=== PATIENT | female | born 1985 | race Caucasian/White ===

== ENCOUNTER 2020-02-10 13:17 | Observation (INO) ==
[2020-02-10] MEDS ORDERED: IOPAMIDOL 100 ML BOTTLE IV ONE ×2 (13:18→21:34)
[2020-02-10] MEDS ORDERED: morphine 2 MG/ML VIAL IV ONE (13:44)
[2020-02-10] MEDS ORDERED: ONDANSETRON 4 MG/2 ML VIAL IV ONE (13:48)
[2020-02-10 14:30] LABS: Basophils # (Auto) 0.02 K/mcL (0.00-0.20); Basophils % (Auto) 0.2 % (0.0-2.0); Eosinophils # (Auto) 0.08 K/mcL (0.00-0.70); Eosinophils % (Auto) 0.9 % (0.0-7.0); Hemoglobin 10.5 g/dL (12.0-15.0); Lymphocytes % (Auto) 13.7 % (15.0-49.0); Mean Cell Volume 95.7 fL (80.0-100.0); Mean Corpuscular HGB Conc 33.9 g/dL (31.0-36.0); Mean Platelet Volume 9.3 fL (7.4-10.4); Monocytes # (Auto) 0.66 K/mcL (0.10-0.90); Monocytes % (Auto) 7.6 % (1.0-12.0); Neutrophils % (Auto) 77.6 % (38.0-78.0); Platelet Count 264 K/mcL (140-440); RBC 3.24 M/mcL (4.00-5.20); Red Cell Distribution Width 11.1 % (11.5-14.5); WBC 8.7 K/mcL (4.5-11.0)
[2020-02-10 14:45] LABS: ALT/SGPT 27 U/L (<40); AST/SGOT 20 U/L (<32); Albumin 4.3 gm/dL (3.2-5.2); Albumin/Globulin Ratio 1.3 (1.0-2.3); Alkaline Phosphatase 76 U/L (39-117); Bilirubin,Total 0.8 mg/dL (0.1-1.0); Blood Urea Nitrogen 10 mg/dL (6-20); Calcium 9.7 mg/dL (8.6-10.4); Carbon Dioxide 25 mmol/L (22-30); Chloride 97 mmol/L (96-108); Globulin 3.2 gm/dL (2.2-3.7); Glomerular Filtration Rate 83; Glucose 103 mg/dL (70-105)
[2020-02-10] MEDS ORDERED: morphine 4 MG/ML VIAL IV ONE ×2 (14:45→16:46)
[2020-02-10] MEDS ORDERED: 0.9 % SODIUM CHLORIDE 1,000 ML IV ONE ×2 (15:31→16:47)
--- NOTE | 2020-02-10 15:41 | Cat Scan Report ---
History: Hypoxia, history of pulmonary emboli, recent surgery TECHNIQUE: Following injection of intravenous nonionic contrast, pulmonary arterial phase images were acquired from the thoracic inlet through the diaphragm. Sagittal and coronal reformats were created. Radiation exposure was limited using dose reduction technology. FINDINGS: On the axial MIPS, series 603, image #60 a small meniscus sign is seen in a solitary peripheral third order branch of the right lower lobe pulmonary artery. No other intraluminal filling defects are seen within the pulmonary arteries in either lung or in the main pulmonary artery. There are multiple thick bands of discoid atelectasis in the right lower lobe resulting in mild elevation of the right diaphragm. There are several smaller bands of discoid atelectasis in the left lower lobe as well as the inferior medial aspect of the right middle lobe and lingula. No lobar consolidation is present. Central airways appear normal. A 3.5 x 5 mm subpleural granuloma is present laterally in the right lower lobe on axial image #68. A 4 x 4 mm granuloma is present laterally in the left lower lobe on image #76. The heart is normal in size and contour. The aorta is normal in caliber. There is no plaque formation. The mediastinum and harlan are normal without evidence of adenopathy. Small hiatus hernia is noted. There are two cysts inferiorly in segments five and six of the right lobe of liver. Largest is located more medially and measures 1.5 cm. Comparison with the prior chest CT done at [facility] on 01/24/14 shows the bands of atelectasis are new. The granulomata in both lower lobes are chronic. The hiatus hernia has developed since the prior exam. IMPRESSION: Very small peripheral embolus in a third order branch of the right lower lobe in a region of the discoid atelectasis Multiple bands of atelectasis with the greatest involvement in the right lower lobe causing elevation of the right diaphragm Dr. Vance was called with the results Interpreted and Authenticated by: Nicholas Cano 02/10/20
[2020-02-10] MEDS ORDERED: oxyCODONE/APAP 5/325MG TABLET PO ONE ×2 (18:13→22:26)
--- NOTE | 2020-02-10 19:41 | Emergency Department Note ---
SOB HPI General Chief Complaint: Shortness of Breath/Dyspnea Stated Complaint: Shortness of breath Time Seen by Provider: 02/10/20 13:22 Source: patient Mode of arrival: ambulatory Limitations: no limitations History of Present Illness HPI Narrative: Narrative: 34-year old patient presenting with chief complaint of dyspnea. Patient's dyspnea arose over the course of past several days. Patient with associated sym ptoms of cough, sputum, gradual progression, orthopnea, fever. Past medical history is significant for surgery on Wednesday vaginal hysterectomy with ovaries left insitu. This patient's dyspnea was exacerbated by exertion within 50-100 feet of walking or several minutes of exercise. Also was associated with a nocturnal component. Symptoms are continuous. Additional associated symptoms such as cough, sputum production, nasal congestion, chest pain, peripheral edema, joint swelling, muscle weakness were also inquired. Patient primarily with dyspnea sensation of air hunger/sensation of suffocation. She also states that at home her saturations drop on walking around the house into the mid to upper 80s. Related Data Home Medications Medication Instructions Recorded Confirmed aripiprazole 10 mg PO DAILY 07/23/19 01/28/20 citalopram 20 mg PO DAILY 07/23/19 01/28/20 rivaroxaban 20 mg PO DAILY 07/23/19 07/23/19 metoprolol tartrate 25 mg PO DAILY 02/10/20 02/10/20 Allergies Allergy/AdvReac Type Severity Reaction Status Date / Time From ZOLOFT AdvReac Severe REALLY Uncoded 10/05/14 00:17 INCREASED ANXIETY AND CRAZY THOUGHTS Review of Systems ROS ROS Narrative: Narrative: All systems ED: reviewed and negative except as stated. [facility] Narrative Patient History Narrative: Narrative: Medical/Surgical/Family History All Active Problems (Updated 02/10/20 @ 19:56 by John Vance MD) Palpitations (Acute) Abnormal vaginal bleeding (Acute) Pulmonary embolism (Acute) Sinus tachycardia (Acute) Social History Smoking Status: Never smoker Alcohol Intake Frequency: holiday/special occasion only Substance Use: does not use Exam Narrative Narrative: Vital signs and evaluated for evidence of hypoxia or hemodynamic compromise specifically tachycardia/hypotension- General: Alert, interactive, appropriate Head: Atraumatic, normocephalic Eyes: Extraocular movements intact, sclera anicteric, no conjunctival injection Ears: Pinnae normal, no discharge Mouth: Oral mucosa moist, no acute swelling or evidence of infection Nares: No nasal discharge, patent bilaterally Neck: Trachea midline, full range of motion Chest: Symmetrical chest wall rise, breathing rapidly, labored respirations Cardiovascular: Patient with excellent perfusion to the extremities; with tachycardia Extremities: Full range of motion joints, no obvious deformities Neuro: Alert, oriented x3, cranial nerves II through XII grossly intact, patient without lateralizing findings such as weakness, or abnormal reflexes Psychiatric: Normal affect, normal mood General Limitations: no limitations Course Vital Signs Vital signs: Vital Signs Temperature 98.7 F 02/10/20 13:18 Pulse Rate 135 H 02/10/20 13:18 Respiratory Rate 30 H 02/10/20 13:18 Blood Pressure 127/82 02/10/20 13:18 Pulse Oximetry (%) 96 02/10/20 13:18 Temperature 98.7 F 02/10/20 13:18 Pulse Rate 120 H 02/10/20 19:21 Respiratory Rate 29 H 02/10/20 19:30 Blood Pressure 111/67 02/10/20 19:30 Pulse Oximetry (%) 93 02/10/20 19:[address] [facility] MDM Narrative Medical decision making narrative: Narrative: Acute dyspnea differential diagnosis considered in this case included GA, heart failure, cardiac tamponade, bronchospasm, pulmonary embolism, pneumothorax, pneumonia or infection, and upper airway obstruction. After review of chart and patient history/physical exam/labs as well as imaging the differential diagnosis addressed was acute hypoxic respiratory failure, COPD exacerbation, pneumonia, sepsis, pulmonary edema, pneumothorax, metabolic acidosis, acute respiratory distress syndrome, panic attack, airflow obstruction, restrictive lung disease, aspiration, congestive heart failure, hypercapnia, influenza, bronchitis, upper respiratory infection, pulmonary embolism, cardiac tamponade, valvular obstruction, GA/ACS, and arrhythmia in my medical opinion this patient has dyspnea that reasonably does require admission to the hospital. Pt does have small subsegmental pulmonary embolus on CT pulmonary angiogram. Despite 2 L of IV fluid and aggressive pain management patient still with discomfort as well as significant tachycardia. After 5 hours of treatment patient was road tested and noted to have her heart rate go from 120s to 140s 150s. Patient did not become hypoxic during this evaluation. I discussed the case with Dr. Omer and the consensus medical opinion secondary to the profound tachycardia and distal pulmonary embolus is to admit the patient for ongoing evaluation management in the hospital. Lab Data Result diagrams: 02/10/20 13:50 02/10/20 13:50 Labs: Lab Results 02/10/20 02/10/20 02/10/20 Range/Units 13:50 13:50 13:50 WBC 8.7 (4.5-11.0) K/mcL RBC 3.24 L (4.00-5.20) M/mcL Hgb 10.5 L (12.0-15.0) g/dL Hct 31.0 L (36.0-48.0) % MCV 95.7 (80.0-100.0) fL MCH 32.4 (26.0-34.0) pg MCHC 33.9 (31.0-36.0) g/dL RDW 11.1 L (11.5-14.5) % Plt Count 264 (140-440) K/mcL MPV 9.3 (7.4-10.4) fL Neut % (Auto) 77.6 (38.0-78.0) % Lymph % (Auto) 13.7 L (15.0-49.0) % [place] % (Auto) 7.6 (1.0-12.0) % Eos % (Auto) 0.9 (0.0-7.0) % Baso % (Auto) 0.2 (0.0-2.0) % Lymph # (Auto) 1.20 L (1.50-4.80) K/mcL [place] # (Auto) 0.66 (0.10-0.90) K/mcL Eos # (Auto) 0.08 (0.00-0.70) K/mcL Baso # (Auto) 0.02 (0.00-0.20) K/mcL Absolute Neutrophils 6.77 (1.80-8.00) K/mcL VBG Lactic Acid 0.9 (0.5-2.0) mmol/L Sodium 133 (133-145) mmol/L Potassium 3.4 (3.3-5.1) mmol/L Chloride 97 (96-108) mmol/L Carbon Dioxide 25 (22-30) mmol/L Anion Gap 11.0 (8.0-16.0) BUN 10 (6-20) mg/dL Creatinine 0.9 (0.6-1.1) mg/dL GFR Calculation 83 Glucose 103 (70-105) mg/dL Calcium 9.7 (8.6-10.4) mg/dL Total Bilirubin 0.8 (0.1-1.0) mg/dL AST 20 (<32) U/L ALT 27 (<40) U/L Alkaline Phosphatase 76 (39-117) U/L Troponin T (<0.03) ng/mL Total Protein 7.5 (5.9-8.4) gm/dL Albumin 4.3 (3.2-5.2) gm/dL Globulin 3.2 (2.2-3.7) gm/dL Albumin/Globulin Ratio 1.3 (1.0-2.3) 02/10/20 Range/Units 13:50 WBC (4.5-11.0) K/mcL RBC (4.00-5.20) M/mcL Hgb (12.0-15.0) g/dL Hct (36.0-48.0) % MCV (80.0-100.0) fL MCH (26.0-34.0) pg MCHC (31.0-36.0) g/dL RDW (11.5-14.5) % Plt Count (140-440) K/mcL MPV (7.4-10.4) fL Neut % (Auto) (38.0-78.0) % Lymph % (Auto) (15.0-49.0) % [place] % (Auto) (1.0-12.0) % Eos % (Auto) (0.0-7.0) % Baso % (Auto) (0.0-2.0) % Lymph # (Auto) (1.50-4.80) K/mcL [place] # (Auto) (0.10-0.90) K/mcL Eos # (Auto) (0.00-0.70) K/mcL Baso # (Auto) (0.00-0.20) K/mcL Absolute Neutrophils (1.80-8.00) K/mcL VBG Lactic Acid (0.5-2.0) mmol/L Sodium (133-145) mmol/L Potassium (3.3-5.1) mmol/L Chloride (96-108) mmol/L Carbon Dioxide (22-30) mmol/L Anion Gap (8.0-16.0) BUN (6-20) mg/dL Creatinine (0.6-1.1) mg/dL GFR Calculation Glucose (70-105) mg/dL Calcium (8.6-10.4) mg/dL Total Bilirubin (0.1-1.0) mg/dL AST (<32) U/L ALT (<40) U/L Alkaline Phosphatase (39-117) U/L Troponin T < 0.01 (<0.03) ng/mL Total Protein (5.9-8.4) gm/dL Albumin (3.2-5.2) gm/dL Globulin (2.2-3.7) gm/dL Albumin/Globulin Ratio (1.0-2.3) Discharge Plan Patient/Caregiver Discharge Instructions Pt seen by CIVIL ENGINEERING INTERN/PA only: No Clinical Impression: Sinus tachycardia Pulmonary embolism Qualifiers: Pulmonary embolism type: single subsegmental (without acute cor pulmonale) Qualified Code(s): I26.93 - Single subsegmental pulmonary embolism without acute cor pulmonale Patient Disposition: Xfer As Inpt ([facility]) Condition: Fair Follow up with: Iris Dawkins MD [Primary Care Provider] - Prescriptions: No Action citalopram 10 MG tablet 40 mg PO DAILY RF: 0 aripiprazole 10 MG tablet 10 mg PO DAILY RF: 0 rivaroxaban 10 MG tablet 20 mg PO DAILY RF: 0 metoprolol tartrate 25 MG tablet 25 mg PO DAILY RF: 0
[2020-02-10] MEDS ORDERED: ACETAMINOPHEN 325 MG TABLET PO PRN ×2 (20:23→21:34)
[2020-02-10] MEDS ORDERED: morphine 2 MG/ML VIAL IV PRN (20:23)
[2020-02-10] MEDS ORDERED: LEVALBUTEROL 0.63 MG/3 ML AMPUL.NEB NEB PRN ×2 (20:23→21:34)
[2020-02-10] MEDS ORDERED: ONDANSETRON 4 MG/2 ML VIAL IV PRN ×2 (20:23→21:34)
[2020-02-10] MEDS ORDERED: 0.9 % SODIUM CHLORIDE 1,000 ML IV SCH (20:30)
[2020-02-10] MEDS ORDERED: traMADol 50 MG TABLET PO PRN ×2 (20:38→21:34)
[2020-02-10] MEDS ORDERED: DOCUSATE SODIUM 100 MG CAPSULE PO SCH (21:00)
--- NOTE | 2020-02-10 21:09 | Internal Med History&Physical ---
HPI History of Present Illness Patient information: Note initiated : 02/10/20 at 8:42 pm Service Date, if different from initiated Date: [] Patient: Layla Cunha a 34 y/o F admitted on for Shortness of breath. Chief Complaint: [] History of present illness: Ms. Cunha is a 34 year old F with a past medical history of vaginal bleeding, status post hysterectomy, and history of PE x 2 who presented to the ER due to worsening shortness of breath. As per patient, she underwent hysterectomy with ovarian left in situ on February 06, 2020 for vaginal bleeding due to benign reason. On February 07, she developed fever, tachycardia, more abdominal pain, and oxygen desaturation 88%. She has been having these since the February 07. The abdominal pain is located both right and left lower quadrants, sharp in nature and 4 out of 10 in severity. She was also found to have thickened inhomogeneous endometrium, for which a biopsy was scheduled. In the ER, she was found to have oxygen desaturation. CT angios showed new PE of right lower lobe. When I saw this patient in the ER, other than the symptoms mentioned above, she also complains of lightheadedness, dizziness, and a cough with small amount of nonbloody sputum. Patient had first PE in 2011 for which she was started on Coumadin. In 2012, she developed a second PE. At that time, INR was subtherapeutic. She switched to Xarelto from Coumadin. Since that, she has been taking Xarelto until she underwent hysterectomy, for which, she stopped taking Xarelto but bridged with the Lovenox. Denies family history of thrombotic events. Denies smoking or cancer. Review of Systems All systems: reviewed and no additional remarkable complaints except as stated PFSH PFSH All Active Problems Palpitations (Acute) Abnormal vaginal bleeding (Acute) Pulmonary embolism (Acute) Sinus tachycardia (Acute) Social History smoking status: Never smoker alcohol intake frequency: holiday/special occasion only substance use type: does not use MEDS/ALLERGIES Home Medications and Allergies Home Medications Medication Instructions Recorded Confirmed Type aripiprazole 10 mg PO DAILY 07/23/19 02/10/20 History citalopram 40 mg PO DAILY 07/23/19 02/10/20 History rivaroxaban 20 mg PO DAILY 07/23/19 02/10/20 History metoprolol tartrate 25 mg PO DAILY 02/10/20 02/10/20 History Allergies Allergy/AdvReac Type Severity Reaction Status Date / Time From ZOLOFT AdvReac Severe REALLY Uncoded 10/05/14 00:17 INCREASED ANXIETY AND CRAZY THOUGHTS EXAM Constitutional Vitals: Temp Pulse Resp BP Pulse Ox 98.7 F 108 H 17 107/69 95 02/10/20 13:18 02/10/20 20:35 02/10/20 20:35 02/10/20 20:30 02/10/20 20:35 Additional findings Additional findings: General - No acute distress Eyes - PERRLA, EOM intact ENT no rhinorrhea, no noticeable or palpable swelling, no redness or rash around throat or on face Neck supple, no JVD, no thyromegaly Respiratory: Lungs -clear, no wheezing or crackles. Cardiovascular - RRR no m/r/g, GI - Normal bowel sounds, no distended, soft. Extremeties - No edema, cyanosis or clubbing Hemo/lymphatic/immune no lymphadenopathy Neurological Alert and oriented x 3, no focal neurological deficits. Psychiatry flat affect DATA Data Completed and Pending Labs: Labs from last 24 hours 02/10/20 02/10/20 02/10/20 13:50 13:50 13:50 WBC RBC Hgb Hct MCV MCH MCHC RDW Plt Count MPV Neut % (Auto) Lymph % (Auto) [place] % (Auto) Eos % (Auto) Baso % (Auto) Lymph # (Auto) [place] # (Auto) Eos # (Auto) Baso # (Auto) Absolute Neutrophils VBG Lactic Acid 0.9 Sodium 133 Potassium 3.4 Chloride 97 Carbon Dioxide 25 Anion Gap 11.0 BUN 10 Creatinine 0.9 GFR Calculation 83 Glucose 103 Calcium 9.7 Total Bilirubin 0.8 AST 20 ALT 27 Alkaline Phosphatase 76 Troponin T < 0.01 Total Protein 7.5 Albumin 4.3 Globulin 3.2 Albumin/Globulin Ratio 1.3 02/10/20 13:50 WBC 8.7 RBC 3.24 L Hgb 10.5 L Hct 31.0 L MCV 95.7 MCH 32.4 MCHC 33.9 RDW 11.1 L Plt Count 264 MPV 9.3 Neut % (Auto) 77.6 Lymph % (Auto) 13.7 L [place] % (Auto) 7.6 Eos % (Auto) 0.9 Baso % (Auto) 0.2 Lymph # (Auto) 1.20 L [place] # (Auto) 0.66 Eos # (Auto) 0.08 Baso # (Auto) 0.02 Absolute Neutrophils 6.77 VBG Lactic Acid Sodium Potassium Chloride Carbon Dioxide Anion Gap BUN Creatinine GFR Calculation Glucose Calcium Total Bilirubin AST ALT Alkaline Phosphatase Troponin T Total Protein Albumin Globulin Albumin/Globulin Ratio A/P Narrative A/P Narrative: 1. Acute hypoxic respiratory failure Pulse ox Oxygen therapy, keep oxygen saturation greater than 92% 2. Acute pulmonary embolism CT angios showed "Very small peripheral embolus in a third order branch of the right lower lobe in a region of the discoid atelectasis" Hx of PE in 2011, started coumadin Hx of PE in 2012, still on coumadin but INR was subtherapeutic. Switched to Xarelto. She stopped take Xarelto due to hysterectomy on February 05, bridging with Lovenox. Denies family history of thrombotic events Denies smoking Thickened inhomogeneous endometrium, biopsy was scheduled Ultrasound Doppler bilateral legs to rule out DVT EKG -sinus tachycardia Echocardiogram BNP Pulse ox Troponin Oxygen therapy I do not think she has failed treatment with Xarelto. The new PE could be due to discontinuity of Xarelto due to surgery. I would like to start her on Xarelto 15 mg p.o. twice daily for 21 days and then 20 mg daily. 3. Vaginal bleeding, s/p hysterectomy on 02/06/20 The [employer] physician who did the procedure was consulted in the ER -no further procedure. Pain management 4. Hx of pulmonary embolism x 2 Echocardiogram Xarelto 5. Sinus tachycaria Cardia monitor Continue metoprolol 6. Anemia of blood loss Patient denies bleeding Repeat CBC in morning 7. DVT prophylaxis: Xarelto 8. 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
[2020-02-10] MEDS: 0.9 % SODIUM CHLORIDE 1,000 ML IV SCH (21:38)
[2020-02-10] MEDS: 0.9 % SODIUM CHLORIDE 10 ML SYRINGE IV SCH (21:39)
[2020-02-10] MEDS ORDERED: 0.9 % SODIUM CHLORIDE 10 ML SYRINGE IV SCH (22:00)
[2020-02-10] MEDS: oxyCODONE/APAP 5/325MG TABLET PO PRN (22:22)
[2020-02-10] MEDS: morphine 2 MG/ML VIAL IV PRN (23:12)
[2020-02-10] MEDS ORDERED: morphine 2 MG/ML VIAL ONE (23:18)
[2020-02-11] MEDS: morphine 2 MG/ML VIAL IV PRN (04:55)
[2020-02-11] MEDS: oxyCODONE/APAP 5/325MG TABLET PO PRN (04:56)
[2020-02-11] MEDS ORDERED: oxyCODONE/APAP 5/325MG TABLET PO ONE (05:00)
[2020-02-11] MEDS ORDERED: morphine 2 MG/ML VIAL ONE (05:00)
[2020-02-11] MEDS: 0.9 % SODIUM CHLORIDE 10 ML SYRINGE IV SCH (05:21)
[2020-02-11 06:09] LABS: Basophils # (Auto) 0.03 K/mcL (0.00-0.20); Basophils % (Auto) 0.4 % (0.0-2.0); Eosinophils # (Auto) 0.17 K/mcL (0.00-0.70); Eosinophils % (Auto) 2.1 % (0.0-7.0); Hematocrit 29.1 % (36.0-48.0); Hemoglobin 9.6 g/dL (12.0-15.0); Lymphocytes # (Auto) 1.01 K/mcL (1.50-4.80); Lymphocytes % (Auto) 12.6 % (15.0-49.0); Mean Cell Volume 98.3 fL (80.0-100.0); Mean Platelet Volume 9.2 fL (7.4-10.4); Monocytes # (Auto) 0.55 K/mcL (0.10-0.90); Monocytes % (Auto) 6.9 % (1.0-12.0); Platelet Count 240 K/mcL (140-440); RBC 2.96 M/mcL (4.00-5.20); Red Cell Distribution Width 11.2 % (11.5-14.5)
[2020-02-11 06:25] LABS: INR 1.1 (0.9-1.1); Prothrombin Time 14.5 sec (11.9-14.5)
[2020-02-11] MEDS ORDERED: PANTOPRAZOLE 40 MG TABLET PO SCH ×2 (07:30)
[2020-02-11] MEDS ORDERED: RIVAROXABAN 15 MG TABLET PO SCH ×2 (08:00)
--- NOTE | 2020-02-11 08:28 | Cat Scan Report ---
History: Abdominal pain, tachycardia, status post nodule hysterectomy within the past five days TECHNIQUE: The patient was imaged without oral or intravenous contrast the diaphragm to the symphysis pubis 2.5 mm intervals. Sagittal and coronal reformats are created. The radiation exposure was limited using dose reduction technology. FINDINGS: There is excreted contrast in the renal collecting systems bilaterally from the preceding pulmonary chest CT angiogram. 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 There is no hydronephrosis and no evidence of a mass, cyst or inflammation in either kidney. Urinary bladder is decompressed and grossly normal. In segment five anterior to the right kidney. Measures 1.8 cm in greatest dimension. The liver is otherwise normal in size and homogeneous. Minor atelectasis in tiny right-sided pleural effusion are present. The spleen is normal size and homogeneous. There is a 1.4 cm accessory spleen posterior to the lower pole. Pancreas is normal size and homogeneous. The adrenals are normal. Aorta and inferior vena cava are normal. There is no plaque formation. There are two large solid, mildly heterogeneous oval-shaped masses in the pelvis. The larger is on the right side and measures 5.3 x 6.7 x 9.0 cm. The one on the left measures 4.6 x 5.4 x 6.0 cm. There is stranding and inflammation of the adjacent fat. There is also a hematoma anterior lateral to the larger right-sided nodule. The hematomas 4 x 5 mm in size. No free intraperitoneal air is present. The uterus is been removed. There appears to be a residual cervical stump. The wall of the sigmoid colon appears inflamed at the level of the adnexal masses. No diverticula are present. There is no evidence of bowel obstruction. Small intestine is normal in caliber. There is a row of surgical sutures in the cecum consistent with prior appendectomy. IMPRESSION: Bilateral adnexal masses. These are probably the ovaries. The ovarian enlargement and stranding of the adjacent fat is highly suspicious for ovarian torsion. Ovarian neoplasm would be less likely. Small hematoma in the right side of the pelvis Dr. Vance was called with the results Interpreted and Authenticated by: Nicholas Caon 02/11/20
[2020-02-11] MEDS ORDERED: DOCUSATE SODIUM 100 MG CAPSULE PO SCH (09:00)
[2020-02-11] MEDS ORDERED: ARIPIPRAZOLE 10 MG TABLET PO SCH (09:00)
[2020-02-11] MEDS ORDERED: CITALOPRAM 20 MG TABLET PO SCH (09:00)
[2020-02-11] MEDS ORDERED: CITALOPRAM 10 MG TABLET PO SCH (09:00)
[2020-02-11] MEDS ORDERED: ARIPIPRAZOLE 5 MG TABLET PO SCH (09:00)
[2020-02-11] MEDS ORDERED: METOPROLOL TARTRATE 25 MG TABLET PO SCH ×2 (09:00)
--- NOTE | 2020-02-11 09:16 | Ultrasound Report ---
History: Shortness of breath, recent pelvic surgery for hysterectomy FINDINGS: There is normal augmentation and compressibility in the deep veins and saphenous veins in both legs from the groin through the calf. Doppler shows normal waveform patterns. IMPRESSION: Normal exam, without evidence of deep venous thrombosis in either leg Interpreted and Authenticated by: Nicholas Cano 02/11/20
[2020-02-11] MEDS: 0.9 % SODIUM CHLORIDE 1,000 ML IV SCH (11:02)
[2020-02-11 11:38] LABS: proBNP 80.4 pg/mL (<125.0)
[2020-02-11 11:39] LABS: ALT/SGPT 19 U/L (<40); AST/SGOT 15 U/L (<32); Albumin 3.8 gm/dL (3.2-5.2); Albumin/Globulin Ratio 1.4 (1.0-2.3); Alkaline Phosphatase 68 U/L (39-117); Bilirubin,Total 0.5 mg/dL (0.1-1.0); Blood Urea Nitrogen 9 mg/dL (6-20); Calcium 9.1 mg/dL (8.6-10.4); Carbon Dioxide 24 mmol/L (22-30); Chloride 101 mmol/L (96-108); Globulin 2.8 gm/dL (2.2-3.7); Glomerular Filtration Rate 96; Glucose 81 mg/dL (70-105)
--- NOTE | 2020-02-11 12:18 | Discharge Summary ---
Discharge Provider Provider Patient information: Note initiated : 02/11/20 at 12:06 pm Service Date, if different from initiated Date: [] Patient: Layla Cunha 34 y/o F admitted on 02/10/20 for Shortness of breath. Chief Complaint: [] Date of admission: 02/10/20 21:24 Discharge date: 02/11/20 Primary care physician: Iris Dawkins Consults: 02/10/20 Consult to Physician [CONS] Stat Comment: Consulting Provider: Lakhwinder Omer Reason For Exam: Physician to Consult Discharge Meds Discharge Medications Home Medications aripiprazole 10 mg PO DAILY 07/23/19 [History Confirmed 02/10/20 Last Taken 02/10/20] citalopram 40 mg PO DAILY 07/23/19 [History Confirmed 02/10/20 Last Taken 02/10/20] metoprolol tartrate 25 mg PO DAILY 02/10/20 [History Confirmed 02/10/20 Last Taken 02/10/20] rivaroxaban [Xarelto] 15 mg PO BIDCC #40 tab 02/11/20 [Rx Last Taken Unknown] tramadol 50 mg PO Q6-8HP PRN #9 tab 02/11/20 [Rx Last Taken Unknown] COURSE Hospital Course Hospital course: 1. Acute hypoxic respiratory failure She is now on room air with good oxygen saturation 2. Acute pulmonary embolism CT angios showed "Very small peripheral embolus in a third order branch of the right lower lobe in a region of the discoid atelectasis" Hx of PE in 2011, started coumadin Hx of PE in 2012, still on coumadin but INR was subtherapeutic. Switched to Xarelto. She stopped take Xarelto due to hysterectomy on February 05, bridging with Lovenox. Denies family history of thrombotic events Denies smoking Pathology report from a hysterectomy pending Ultrasound Doppler bilateral legs negative for DVT EKG -sinus tachycardia Echocardiogram was performed and results are pending BNP 80 Troponin negative x2 I do not think she has failed treatment with Xarelto. The new PE could be due to discontinuity of Xarelto due to surgery. I would like to start her on Xarelto 15 mg p.o. twice daily for 21 days and then 20 mg daily. Educated patient the side effects of Xarelto. Follow with PCP and medical equipment technician 3. Vaginal bleeding, s/p hysterectomy on 02/06/20 The [facility] [employer] physician who did the procedure was consulted in the ER -no further procedure. Pain management 4. Hx of pulmonary embolism x 2 Echocardiogram Xarelto 5. Sinus tachycaria Improving Continue metoprolol 6. Anemia of blood loss Could be due to blood loss from surgery and previous bleeding Patient denies active current bleeding Repeat CBC in morning Ms. Cunha is a 34 year old F with a past medical history of vaginal bleeding, status post hysterectomy, and history of PE x 2 who presented to the ER due to worsening shortness of breath. As per patient, she underwent hysterectomy with ovarian left in situ on February 06, 2020 for vaginal bleeding due to benign reason. On February 07, she developed fever, tachycardia, more abdominal pain, and oxygen desaturation 88%. She has been having these since the February 07. The abdominal pain is located both right and left lower quadrants, sharp in nature and 4 out of 10 in severity. She was also found to have thickened inhomogeneous endometrium, for which a biopsy was scheduled. In the ER, she was found to have oxygen desaturation. CT angios showed new PE of right lower lobe. When I saw this patient in the ER, other than the symptoms mentioned above, she also complains of lightheadedness, dizziness, and a cough with small amount of nonbloody sputum. Patient had first PE in 2011 for which she was started on Coumadin. In 2012, she developed a second PE. At that time, INR was subtherapeutic. She switched to Xarelto from Coumadin. Since that, she has been taking Xarelto until she underwent hysterectomy, for which, she stopped taking Xarelto but bridged with the Lovenox. Denies family history of thromboti c events. Denies smoking or cancer. 02/10 Today patient feels much better and does not have any complaints. Vital signs are stable and acceptable. She is on room air with a good oxygen saturation. Ultrasound Doppler no DVT of both legs. Echocardiogram were not performed and report pending. BNP 80. Troponin negative x2 She is now on Xarelto. She will be discharged home to follow with PCP, SEAM STEAMER and hematology. Repeat CBC in 3 days. If you have bleeding call PCP or go to the ER immediately. Call PCP for medical issues. Discharge diagnosis: Acute pulmonary embolism Time Spent with Patient Time attestation: Total time spent providing and/or coordinating discharge services: EXAM Constitutional Vitals: Temp Pulse Resp BP Pulse Ox 98.4 F 97 H 18 100/61 98 02/11/20 09:01 02/11/20 10:05 02/11/20 09:01 02/11/20 10:01 02/11/20 04:01 Additional findings Additional findings: General - No acute distress Eyes - PERRLA, EOM intact ENT no rhinorrhea, no noticeable or palpable swelling, no redness or rash around throat or on face Neck supple, no JVD, no thyromegaly Respiratory: Lungs -clear, no wheezing or crackles. Cardiovascular - RRR no m/r/g, GI - Normal bowel sounds, no distended, soft. Extremeties - No edema, cyanosis or clubbing Hemo/lymphatic/immune no lymphadenopathy Neurological Alert and oriented x 3, no focal neurological deficits. Psychiatry flat affect Discharge Data Data Completed and Pending Labs on day of discharge: Labs from last 24 hours 02/11/20 02/11/20 02/11/20 04:12 04:12 04:12 WBC 8.0 RBC 2.96 L Hgb 9.6 L Hct 29.1 L MCV 98.3 MCH 32.4 MCHC 33.0 RDW 11.2 L Plt Count 240 MPV 9.2 Neut % (Auto) 78.0 Lymph % (Auto) 12.6 L Meriwether % (Auto) 6.9 Eos % (Auto) 2.1 Baso % (Auto) 0.4 Lymph # (Auto) 1.01 L [place] # (Auto) 0.55 Eos # (Auto) 0.17 Baso # (Auto) 0.03 Absolute Neutrophils 6.24 PT INR VBG Lactic Acid Sodium 136 Potassium 3.7 Chloride 101 Carbon Dioxide 24 Anion Gap 11.0 BUN 9 Creatinine 0.8 GFR Calculation 96 Glucose 81 Calcium 9.1 Total Bilirubin 0.5 AST 15 ALT 19 Alkaline Phosphatase 68 Troponin T < 0.01 NT-Pro-B Natriuret Pep 80.4 Total Protein 6.6 Albumin 3.8 Globulin 2.8 Albumin/Globulin Ratio 1.4 02/11/20 02/10/20 02/10/20 04:12 13:50 13:50 WBC RBC Hgb Hct MCV MCH MCHC RDW Plt Count MPV Neut % (Auto) Lymph % (Auto) Meriwether % (Auto) Eos % (Auto) Baso % (Auto) Lymph # (Auto) Mer[place]ether # (Auto) Eos # (Auto) Baso # (Auto) Absolute Neutrophils PT 14.5 INR 1.1 VBG Lactic Acid 0.9 Sodium Potassium Chloride Carbon Dioxide Anion Gap BUN Creatinine GFR Calculation Glucose Calcium Total Bilirubin AST ALT Alkaline Phosphatase Troponin T < 0.01 NT-Pro-B Natriuret Pep Total Protein Albumin Globulin Albumin/Globulin Ratio 02/10/20 02/10/20 13:50 13:50 WBC 8.7 RBC 3.24 L Hgb 10.5 L Hct 31.0 L MCV 95.7 MCH 32.4 MCHC 33.9 RDW 11.1 L Plt Count 264 MPV 9.3 Neut % (Auto) 77.6 Lymph % (Auto) 13.7 L [place] % (Auto) 7.6 Eos % (Auto) 0.9 Baso % (Auto) 0.2 Lymph # (Auto) 1.20 L Mer[place] # (Auto) 0.66 Eos # (Auto) 0.08 Baso # (Auto) 0.02 Absolute Neutrophils 6.77 PT INR VBG Lactic Acid Sodium 133 Potassium 3.4 Chloride 97 Carbon Dioxide 25 Anion Gap 11.0 BUN 10 Creatinine 0.9 GFR Calculation 83 Glucose 103 Calcium 9.7 Total Bilirubin 0.8 AST 20 ALT 27 Alkaline Phosphatase 76 Troponin T NT-Pro-B Natriuret Pep Total Protein 7.5 Albumin 4.3 Globulin 3.2 Albumin/Globulin Ratio 1.3 Discharge Plan Patient/Caregiver Discharge Instructions Activity: increase activity as tolerated Diet: Regular Diet Prescriptions: New tramadol 50 mg Tablet 50 mg PO Q6-8HP PRN (Reason: Pain) Qty: 9 RF: 0 Xarelto 15 mg Tablet 15 mg PO BIDCC Qty: 40 RF: 0 Continued citalopram 10 MG tablet 40 mg PO DAILY RF: 0 aripiprazole 10 MG tablet 10 mg PO DAILY RF: 0 metoprolol tartrate 25 MG tablet 25 mg PO DAILY RF: 0 Discontinued rivaroxaban 10 MG tablet 20 mg PO DAILY RF: 0 Other Ambulatory Orders: Complete Blood Count (Routine) Timeframe: 3 Days Facility: [facility] - Location: Laboratory Ordered By: Lakhwinder Omer Follow Up Plan Follow up with: Iris Dawkins MD [Primary Care Provider] - Unknown [Outside] (Follow with PCP in 3 days and hematology in 1 week.) Patient Disposition: Home, Self-Care Prognosis: Fair Discharge Orders: Discharge Order (Routine); Ordered 02/11/20 Ordered By: Lakhwinder Omer
== END 2020-02-11 13:50 | disposition home or self-care (01) ==
LOC: ED 13:17 → ICU 13:17
PROVIDERS: ADMIT Internal Medicine; ATTEND Internal Medicine

== ENCOUNTER 2020-09-17 08:48 | Observation (INO) ==
[2020-09-17] MEDS ORDERED: IOPAMIDOL 100 ML BOTTLE IV ONE (08:49)
[2020-09-17] MEDS ORDERED: 0.9 % SODIUM CHLORIDE 1,000 ML IV ONE (09:09)
--- NOTE | 2020-09-17 09:24 | Emergency Department Note ---
HPI General Chief complaint: Weakness Stated complaint: weakness Time Seen by Provider: 09/17/20 09:19 Source: patient Mode of arrival: ambulatory Limitations: no limitations History of Present Illness HPI Narrative: Narrative: Patient is a 35-year-old female with history of antiphospholipid antibody syndrome who is on anticoagulation. She had a recent noted right ovarian tumor and hemorrhagic cyst which was removed 4 days ago. She has since restarted her Coumadin and is currently as well on Lovenox postoperatively. She was having some recent pain which her doctor had plan to do CT scan of the abdomen and p paulo to further evaluate feeling of bloating and the ongoing pain. This morning she was getting her kids ready for school when she being came suddenly lightheaded dizzy felt like she was going to pass out and had worsening abdominal pain. Staff noted on arrival she appeared pale. Her heart rate has been fast but she has no complaint of any pleuritic chest pain. She does have increased pain with movement or tapping over the abdomen. No hematemesis no melena or hematochezia. No blood in the urine. She notes a bruise on her posterior left leg which she is suspects is from being moved over or about on the OR table. Rates her pain as moderate but at times severe with palpation of the abdomen. Again worse with movement. She has not had any fever or other ill symptoms. No feeling of shortness of breath other than as in conjunction with feeling like she was going to pass out. Related Data Home Medications Medication Instructions Recorded Confirmed aripiprazole 5 mg PO DAILY 07/23/19 09/17/20 warfarin See Rx Instructions .ROUTE .COMPLEX 09/09/20 09/17/20 Previous Rx's Medication Instructions Recorded enoxaparin [Lovenox] 90 mg SUBCUT Q12H #10 ml 09/09/20 oxycodone-acetaminophen [Percocet] 1 tab PO Q6H PRN #30 tab 09/09/20 Allergies Allergy/AdvReac Type Severity Reaction Status Date / Time sertraline AdvReac Mild Anxiety Verified 09/17/20 09:05 Review of Systems ROS ROS Narrative: Narrative: A 10 system review of systems was performed and found to be negative except as outlined above. [facility] Narrative Patient History Narrative: Narrative: Medical/Surgical/Family History All Active Problems (Updated 09/17/20 @ 12:33 by Joel Olmos MD) Ovarian cyst (Acute) Postoperative hematoma (Acute) Postoperative hematoma involving genitourinary system (Acute) Lower abdominal pain (Acute) Palpitations (Acute) Abnormal vaginal bleeding (Acute) Pulmonary embolism (Acute) Sinus tachycardia (Acute) Social History Smoking Status: Never smoker Alcohol Intake Frequency: holiday/special occasion only Substance Use: does not use Exam Narrative Narrative: Narrative: General: Alert, mildly pale appearing. Speaking full sentences without dyspnea. HEENT: NCAT, PERRL, Oral pharynx with moist mucus membranes. No pharyngeal erythema. No conjunctival pallor, no gingival pallor. Neck: Supple, No lymphadenopathy Chest: Stable symmetric chest expansion. Heart: Tachycardic with regular rhythm. Rate is approximately 105-108. No appreciable murmur. Lungs: Clear to auscultation bilaterally, no pleural rub. Abdomen: Soft, mild distention. Evidence of laparoscopic surgical sites with minimal bruising around them. There is question of minimal bloating or distention of the abdomen. She is exquisitely tender in the right lower quadrant with some rebound tenderness. There is also rebound tenderness elsewhere over the general abdomen including in the left upper abdomen with again the pain referred to the right lower quadrant. Patient is status post appendectomy. : No bladder distention Back: Nontraumatic, No CVA tenderness to palpation. Skin: No rash or lesion. 1 small ecchymosis right posterior medial left thigh without hematoma. Extremity: No cyanosis or edema, pulses 1+ radial Neurologic: Moves all extremities in appropriate coordinated fashion. General Limitations: no limitations Course Vital Signs Vital signs: Vital Signs Temperature 98.5 F 09/17/20 08:55 Pulse Rate 110 H 09/17/20 08:55 Respiratory Rate 16 09/17/20 08:55 Blood Pressure 114/87 09/17/20 08:55 Pulse Oximetry (%) 99 09/17/20 08:55 Temperature 98.5 F 09/17/20 08:55 Pulse Rate 104 H 09/17/20 12:15 Respiratory Rate 14 09/17/20 12:15 Blood Pressure 110/86 09/17/20 12:15 Pulse Oximetry (%) 94 09/17/20 12:15 [facility] Narrative Medical decision making narrative: Narrative: Patient is with history of PEs as well as DVTs. The presentation is more concerning for postoperative bleeding with potential for hemoperitoneum. CT will be obtained and additional fluids pain medications and consultation with her OB. Again no current evidence of pulmonary embolism but given that she was off of the anticoagulants we will go ahead and do a CT of the chest while compl eting the CT abdomen today. CT chest angiogram showed no evidence of PE. CT abdomen pelvis demonstrated area of post surgical hematoma 10 cm at its largest. Patient was treated with Dilaudid and Zofran as well as IV fluid hydration. She is feeling improved. Dr. Hutton was kind enough to present to the emergency department to evaluate the patient in given that she is on anticoagulants feels that the area of hematoma is not unanticipated but will avoid repeat surgery at this time we will continue to watch it. Patient will be sent home with further pain control and follow-up with FREEZER MACHINE OPERATOR. Questions were invited and answered. Lab Data Result diagrams: 09/17/20 09:35 09/17/20 09:35 Labs: Lab Results 09/17/20 09/17/20 09/17/20 Range/Units 09:34 09:35 09:35 WBC 5.9 (4.5-11.0) K/mcL RBC 3.94 L (4.00-5.20) M/mcL Hgb 12.3 (12.0-15.0) g/dL Hct 36.6 (36.0-48.0) % MCV 92.9 (80.0-100.0) fL MCH 31.2 (26.0-34.0) pg MCHC 33.6 (31.0-36.0) g/dL RDW 11.4 L (11.5-14.5) % Plt Count 318 (140-440) K/mcL MPV 9.3 (7.4-10.4) fL Neut % (Auto) 66.0 (38.0-78.0) % Lymph % (Auto) 23.1 (15.0-49.0) % Greer % (Auto) 8.2 (1.0-12.0) % Eos % (Auto) 2.4 (0.0-7.0) % Baso % (Auto) 0.3 (0.0-2.0) % Lymph # (Auto) 1.35 L (1.50-4.80) K/mcL Greer # (Auto) 0.48 (0.10-0.90) K/mcL Eos # (Auto) 0.14 (0.00-0.70) K/mcL Baso # (Auto) 0.02 (0.00-0.20) K/mcL Absolute Neutrophils 3.86 (1.80-8.00) K/mcL Sodium 139 (133-145) mmol/L Potassium 3.7 (3.3-5.1) mmol/L Chloride 100 (96-108) mmol/L Carbon Dioxide 27 (22-30) mmol/L Anion Gap 12.0 (8.0-16.0) BUN 10 (6-20) mg/dL Creatinine 0.9 (0.6-1.1) mg/dL GFR Calculation 83 Glucose 94 (70-105) mg/dL Calcium 9.9 (8.6-10.4) mg/dL Total Bilirubin 0.3 (0.1-1.0) mg/dL AST 80 H (<32) U/L ALT 92 H (<40) U/L Alkaline Phosphatase 76 (39-117) U/L Troponin T < 0.01 (<0.03) ng/mL Total Protein 7.6 (5.9-8.4) gm/dL Albumin 4.5 (3.2-5.2) gm/dL Globulin 3.1 (2.2-3.7) gm/dL Albumin/Globulin Ratio 1.5 (1.0-2.3) Lipase 15 (7-60) U/L Discharge Plan Patient/Caregiver Discharge Instructions Pt seen by WEIGHER OPERATOR/PA only: No Clinical Impression: Postoperative hematoma Qualifiers: Surgical complication system/body Area: genitourinary Procedure type: genitourinary Qualified Code(s): N99.840 - Postprocedural hematoma of a genitourinary system organ or structure following a genitourinary system procedure Postoperative hematoma involving genitourinary system Qualifiers: Procedure type: genitourinary Qualified Code(s): N99.840 - Postprocedural hematoma of a genitourinary system organ or structure following a genitourinary system procedure Instructions: Pain Management After Surgery (DC) Patient Disposition: Home, Self-Care Condition: Fair Follow up with: Iris Dawkins MD [Primary Care Provider] - Prescriptions: No Action aripiprazole 10 MG tablet 5 mg PO DAILY RF: 0 warfarin 5 mg tablet See Rx Instructions .ROUTE .COMPLEX RF: 0 enoxaparin [Lovenox] 100 mg/mL syringe 90 mg subcut Q12H Qty: 10 RF: 1 oxycodone-acetaminophen [Percocet] 5-325 mg tablet 1 tab PO Q6H PRN (Reason: pain) Qty: 30 RF: 0
[2020-09-17] MEDS ORDERED: ONDANSETRON 4 MG/2 ML VIAL IV ONE ×2 (09:25→13:30)
[2020-09-17] MEDS ORDERED: LACTATED RINGERS 1,000 ML IV ONE ×2 (09:25→12:50)
[2020-09-17] MEDS ORDERED: 0.9 % SODIUM CHLORIDE 250 ML IV SCH (09:30)
[2020-09-17] MEDS: HYDROmorphone 0.5 MG/0.5 ML SYRINGE IV PRN ×7 (09:44→19:02)
[2020-09-17 10:14] LABS: Basophils # (Auto) 0.02 K/mcL (0.00-0.20); Basophils % (Auto) 0.3 % (0.0-2.0); Eosinophils # (Auto) 0.14 K/mcL (0.00-0.70); Eosinophils % (Auto) 2.4 % (0.0-7.0); Hematocrit 36.6 % (36.0-48.0); Hemoglobin 12.3 g/dL (12.0-15.0); Lymphocytes # (Auto) 1.35 K/mcL (1.50-4.80); Lymphocytes % (Auto) 23.1 % (15.0-49.0); Mean Cell Volume 92.9 fL (80.0-100.0); Mean Corpuscular HGB Conc 33.6 g/dL (31.0-36.0); Mean Platelet Volume 9.3 fL (7.4-10.4); Monocytes # (Auto) 0.48 K/mcL (0.10-0.90); Monocytes % (Auto) 8.2 % (1.0-12.0); Platelet Count 318 K/mcL (140-440); RBC 3.94 M/mcL (4.00-5.20); Red Cell Distribution Width 11.4 % (11.5-14.5); WBC 5.9 K/mcL (4.5-11.0)
--- NOTE | 2020-09-17 10:28 | Cat Scan Report ---
CLINICAL INFORMATION: Recent right oophorectomy. Chest pain. COMPARISON: CT 02/10/2020. TECHNIQUE: 80ml of Isovue-370 were injected intravenously. Using SmartPrep to maximize pulmonary artery opacification, .625mm helical slices were obtained from the lung apices through the lung bases. Following reconstruction, 2.5 mm sagittal, coronal, and axial reformations were processed. The exam was reviewed at mediastinal, lung, and bone windows. The exam was performed using radiation dose optimization techniques including, but not limited to, automated exposure control, adjustment of the mA and/or kV according to patient size and use of iterative reconstruction technique. FINDINGS: Pulmonary parenchymal windows show stranding fibrosis in both posterior lower lobes. There is a 2.5 mm well scribed nodule in the lateral basilar segment of the right lower lobe on image 72 which is new. It is still in benign size range. There are no effusions. The mediastinal windows show the pulmonary arteries are well-opacified and normal in caliber-no evidence of embolus. Thoracic aorta is normal diameter. There is no adenopathy in the mediastinal hilar or axillary regions. The heart is normal in size configuration without coronary plaque. Esophagus shows small hiatal hernia. Thyroid is unremarkable. Bones and soft tissues the chest wall are normal. IMPRESSION: 1. No evidence of pulmonary embolus or other acute cardiopulmonary process. 2. Scattered fibrotic stranding in both posterior lower lobes. 2.5 mm well-circumscribed nodule in the lateral segment the right lower lobe was not definitely seen in previous. It is still within benign size range and is almost certainly a benign granuloma 3. Small hiatal hernia. Interpreted and Authenticated by: Emre Kim 09/17/20
[2020-09-17 10:35] LABS: ALT/SGPT 92 U/L (<40); AST/SGOT 80 U/L (<32); Albumin 4.5 gm/dL (3.2-5.2); Albumin/Globulin Ratio 1.5 (1.0-2.3); Alkaline Phosphatase 76 U/L (39-117); Bilirubin,Total 0.3 mg/dL (0.1-1.0); Blood Urea Nitrogen 10 mg/dL (6-20); Calcium 9.9 mg/dL (8.6-10.4); Carbon Dioxide 27 mmol/L (22-30); Chloride 100 mmol/L (96-108); Globulin 3.1 gm/dL (2.2-3.7); Glomerular Filtration Rate 83; Glucose 94 mg/dL (70-105)
--- NOTE | 2020-09-17 10:55 | Cat Scan Report ---
CLINICAL INFORMATION: Recent right oophorectomy. Persistent pain COMPARISON: Preoperative abdomen and pelvic CT: 09/09/2020 TECHNIQUE: Following enteric contrast, 80 cc of Isovue-370 were injected intravenously, and 60 seconds later, 0.625 mm helical slices were obtained from the mid heart through the subtrochanteric regions. Following reconstruction, 2.5 mm sagittal, coronal and axial reformatted images were processed and reviewed at bone, lung and soft tissue windows. Five minutes later, 0.625 mm helical slices were obtained from the mid heart through the kidneys and viewed at soft tissue windows.The exam was performed using radiation dose optimization techniques including, but not limited to, automated exposure control, adjustment of the mA and/or kV according to patient size and use of iterative reconstruction technique. FINDINGS: Two small simple cysts in the right hepatic lobe ranging up to 20 mm are unchanged. The gallbladder and bile ducts are normal: CBD is 5 mm. Both kidneys, adrenal glands, spleen, pancreas and aorta, including aortic branches are normal in size, configuration and attenuation without focal lesion. Is no free air or adenopathy. Pelvic images show urinary bladder is unremarkable. Hysterectomy changes are appreciated. A complex amount 10 cm in maximal diameter, multilobulated fluid collection is seen in the former region of the uterine and ovaries. It likely represents combination of seroma and hematoma which obscures the residual ovaries. The stomach, small large bowel are grossly normal. The appendix is surgically absent. Small amount of air is seen within the laparotomy incision the periumbilical region. Bone windows show no osseous abnormality. IMPRESSION: 1. Complex multilobulated fluid collection in the pelvic surgical site which spans 10 cm. This is likely a complex hematoma/ seroma and residual right and left ovary which is obscured by the fluid. Consider pelvic ultrasound for more specific evaluation. Interpreted and Authenticated by: Emre Kim 09/17/20
[2020-09-17] MEDS ORDERED: HYDROmorphone 1 MG/ML SYRINGE IV ONE (12:47)
--- NOTE | 2020-09-17 13:04 | Consultation ---
HISTORY AND PHYSICAL: 09/17/2020 HISTORY OF PRESENT ILLNESS: The patient is a 35-year-old female who came to the emergency room with increasing right lower quadrant pain. The patient had increased discomfort and bloating. She had a laparoscopic right salpingo-oophorectomy on 09/13/2020. The patient was discharged to home in good condition. She has a history of antiphospholipid antibody syndrome. The patient had been stopped off of her Coumadin and bridged to Lovenox during her surgical timeframe. The patient was restarted on Lovenox 12 hours afterwards and is bridging back onto her Coumadin at this time. The patient reports that on Wednesday she began having increased pain and discomfort over the past few days. She began hurting on Wednesday with increased pain and has continued to have pain. She came to the hospital today being more bloated with increasing discomfort. The patient had a near syncopal episode at home. On arrival, her vitals have been fairly good. She has been talkative. The patient had a CT scan performed which showed a 10 cm hematoma vaguely in the lower abdomen pelvic area. 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 She has been afebrile since admission. Head: Normacephalic and Atraumatic LUNGS: Clear To Auscultation HEART: Regular rate and rhythm, no murmurs ABDOMEN: The patient's abdominal exam shows a distended abdomen with positive bowel sounds. It is tender in the right lower quadrant. Incisions from previous surgery are clean, dry, and intact. EXTRMITIES: No edema IMAGING: CT scan shows a 10 cm ovary which is consistent with a multilobulated fluid collection and hematoma. LABORATORY RESULTS: White blood cell count of 5.9, H and H 12.3 and 36.6, platelets at 318. Sodium 139, potassium 3.7, chloride 100, CO2 27, AST 80, ALT 92. ASSESSMENT AND PLAN: The patient is a 35-year-old female with a pelvic hematoma following surgery 4 days ago. At this point, I discussed with Dr. Logan of General Surgery, and we are both in agreement that at this point stopping her anticoagulation and taking her back to surgery puts her at significant risk. Her vitals are stable and her hemoglobin and hematocrit are good. At this point we will manage conservatively with postoperative pain medicine and deal with as things go. I have discussed this with the patient who is understanding of such and is okay with this current plan. ABW:savanah Job ID: [id number] Doc ID: [id number] Sherman Hutton MD [facility]
[2020-09-17 14:24] LABS: Hematocrit 30.5 % (36.0-48.0); Hemoglobin 10.4 g/dL (12.0-15.0)
[2020-09-17] MEDS ORDERED: HYDROmorphone 0.5 MG/0.5 ML SYRINGE IV PRN (17:13)
[2020-09-17] MEDS ORDERED: ONDANSETRON 4 MG/2 ML VIAL IV PRN (17:13)
[2020-09-17 17:33] LABS: POC INR 1.3 (0.8-1.2); POC Pro Time 15.9 sec (11.9-14.5)
[2020-09-17] MEDS ORDERED: HYDROmorphone 0.5 MG/0.5 ML SYRINGE ONE (20:32)
[2020-09-17] MEDS: LACTATED RINGERS 1,000 ML IV SCH (20:39)
[2020-09-17] MEDS: HYDROmorphone 1 MG/ML SYRINGE IV PRN ×2 (20:39→23:16)
[2020-09-18] MEDS: HYDROmorphone 1 MG/ML SYRINGE IV PRN ×4 (02:15→14:39)
[2020-09-18] MEDS: LACTATED RINGERS 1,000 ML IV SCH ×2 (04:43→16:38)
--- NOTE | 2020-09-18 06:51 | OB/GYN Progress Note ---
SUBJECTIVE Subjective Patient information: Note initiated : 09/18/20 at 6:45 am Service Date, if different from initiated Date: [] Patient: Layla Cunha 35 y/o F admitted on 09/17/20 for weakness. Chief Complaint: [] Abdominal Pain with Postop Hematoma Pain is improved today. Able to ambulate at this point today. No syncope today. Constitutional Vitals: Vital Signs Temp Pulse Resp BP Pulse Ox 97.8 F 90 12 98/66 94 09/18/20 03:16 09/18/20 03:16 09/18/20 03:16 09/18/20 03:16 09/18/20 03:16 Period Temp Pulse Resp BP Sys/Escobar Pulse Ox Last 24 Hr 97.8 F-99.0 F 90-119 9-20 98-134/66-96 91-100 Intake and Output 09/17/20 09/18/20 09/18/20 21:59 05:59 13:59 Intake Total 1200 Output Total 1075 Balance 125 Weight 202 lb Intake & Output: Intake & Output 09/17/20 09/18/20 09/18/20 21:59 05:59 13:59 Intake Total 1200 Output Total 1075 Balance 125 Weight 202 lb Intake: IV 1000 Lactated Ringers 1,000 ml @ 125 1000 mls/hr IV .Q8H JERED Rx#: [id number] Oral 200 Output: Void Amount 1075 Other: Urine Appearance Clear Urine Color Bright Yellow GI/Abdominal GI/Abdominal exam: Present normal bowel sounds and distended Additional comments: distention improving this am. Abdomen seems to be improving today. A/P Assessment and plan (1) Ovarian cyst: Status: Acute (2) Postoperative hematoma: Status: Acute Comment: Will repeat her CT scan today to determine if she has an expanding area. Awaiting morning hemoglobin. Vitals have stabilized today. Qualifiers: Procedure type: genitourinary Surgical complication system/body Area: genitourinary Qualified Code(s): N99.840 - Postprocedural hematoma of a genitourinary system organ or structure following a genitourinary system p rocedure (3) Antiphospholipid antibody syndrome: Status: Acute Comment: remains off of her anticoagulants with an active/resolving bleed Time Spent With Patient Time: Total time spent is greater than 50% in coordination of care (as documented) at patient's floor/unit and/or counseling patient:
[2020-09-18 07:45] LABS: Basophils # (Auto) 0.01 K/mcL (0.00-0.20); Basophils % (Auto) 0.2 % (0.0-2.0); Eosinophils # (Auto) 0.11 K/mcL (0.00-0.70); Eosinophils % (Auto) 2.4 % (0.0-7.0); Hematocrit 30.5 % (36.0-48.0); Lymphocytes # (Auto) 0.96 K/mcL (1.50-4.80); Lymphocytes % (Auto) 21.3 % (15.0-49.0); Mean Cell Volume 94.4 fL (80.0-100.0); Mean Corpuscular HGB Conc 32.8 g/dL (31.0-36.0); Mean Platelet Volume 9.1 fL (7.4-10.4); Monocytes # (Auto) 0.37 K/mcL (0.10-0.90); Monocytes % (Auto) 8.2 % (1.0-12.0); Neutrophils % (Auto) 67.9 % (38.0-78.0); Platelet Count 261 K/mcL (140-440); RBC 3.23 M/mcL (4.00-5.20); Red Cell Distribution Width 11.7 % (11.5-14.5); WBC 4.5 K/mcL (4.5-11.0)
--- NOTE | 2020-09-18 10:07 | Cat Scan Report ---
CLINICAL INFORMATION: Pelvic hematoma. Pain COMPARISON: Abdomen and pelvic CT 09/09/2020 TECHNIQUE: 0.625 mm helical slices were obtained from the mid heart through the subtrochanteric regions. Following reconstruction, 2.5 mm sagittal, coronal and axial reformatted images were processed and reviewed at bone and soft tissue windows.The exam was performed using radiation dose optimization techniques including, but not limited to, automated exposure control, adjustment of the mA and/or kV according to patient size and use of iterative reconstruction technique. FINDINGS: Lung bases show moderate subsegmental atelectasis in both inferior lower lobes which has increased. No effusions. The visualized heart is normal. Abdominal images show the two simple cysts the right hepatic lobe ranging up to 20 mm are stable. No significant hepatic abnormality. IV contrast, from prior CT, has been excreted into the gallbladder (as expected). The gallbladder is normal. Intrahepatic and common bile ducts are normal caliber: CBD is 5 mm. Both kidneys, adrenal glands, spleen, pancreas and aorta are normal in size, configuration and attenuation without focal lesion. Pelvic images show hysterectomy changes. On the CT over one week prior, there were two complex cystic lesions on the right ovary: 4.1 and 4.3 cm respectively. These appear to a ruptured resulting in moderate hemoperitoneum throughout the true pelvis. Left ovary is obscured by the hemorrhage. Hysterectomy changes noted. Urinary bladder unremarkable. Stomach, small bowel, appendix region and large bowel are grossly normal. Bone windows show no osseous abnormality. IMPRESSION: Interval rupture of two complex right ovarian cystic lesions 4.3 and 4.1 cm respectively. As a result, there is moderate hemoperitoneum within the true pelvis and scattered within the false pelvis. Hemorrhage obscures the left ovary. The uterus is surgically absent. Moderate subsegmental atelectasis both lower lobes-new Broad periumbilical hernia is stable in size. Interpreted and Authenticated by: Emre Kim 09/18/20
--- NOTE | 2020-09-19 07:35 | Discharge Summary ---
DATE OF ADMISSION: 09/17/2020 DATE OF DISCHARGE: 09/18/2020 ADMITTING DIAGNOSIS: Postoperative abdominal/pelvic hematoma. HOSPITAL COURSE: The patient is a 35-year-old female who was admitted on 09/17/2020 with a postoperative hematoma found on CT scan of about 10 cm. The patient had abdominal distention and belly pain. Her H&H were initially at 12.3 and 36.6. Over the course of the afternoon they dropped to 10.4 and 30.5. She was having syncope and pain, not feeling well so she was kept overnight. Repeat H&H this morning were 10.0 and 30.5. Her belly is less distended. Today, she is ambulating and tolerating p.o. eating without difficulty. The pain has decreased substantially. She has been on Dilaudid for pain. The patient has had a repeat CT scan, which, per radiologist, shows slight improvement. There is no further extension than the hematoma. The patient continues to improve. Vital signs have been good with BP 105/78, P 100, RR 12, T 98.2. I discussed with the radiologist who is in agreement that this is improving and who's recommendation is against trying to drain the hematoma. I discussed with Dr. Banks who has recommended she be discharged without any anticoagulation and to be restarted in 1 week. I have instructed the patient as such. PLAN: I have given her hydrocodone for pain. She is to follow up in the office in 2 weeks with me. She is told to call for increasing pain or discomfort. ABW:theo Job ID: [id number] Doc ID: [id number] Sherman Hutton MD
== END 2020-09-18 18:10 | disposition home or self-care (01) ==
LOC: MEDSUR 08:48 → ED 08:48
PROVIDERS: ADMIT Obstetrics & Gynecology; ATTEND Obstetrics & Gynecology

== ENCOUNTER 2022-12-06 14:46 | Inpatient (IN) ==
[2022-12-06] MEDS ORDERED: IOPAMIDOL 100 ML BOTTLE IV ONE (14:47)
[2022-12-06] MEDS ORDERED: fentaNYL 100 MCG/2 ML VIAL IV ONE (15:37)
[2022-12-06] MEDS ORDERED: 0.9 % SODIUM CHLORIDE 1,000 ML IV ONE (15:37)
[2022-12-06 15:46] LABS: POC Calcium, Ionized 1.21 (1.16-1.32); POC Potassium 3.9 (3.3-5.1)
[2022-12-06] MEDS ORDERED: HYDROmorphone 1 MG/ML SYRINGE IV ONE ×3 (16:05→19:35)
[2022-12-06 16:16] LABS: Basophils # (Auto) 0.03 K/mcL (0.00-0.30); Basophils % (Auto) 0.6 % (0.0-2.0); Eosinophils # (Auto) 0.14 K/mcL (0.00-0.70); Eosinophils % (Auto) 2.7 % (0.0-7.0); Hematocrit 37.3 % (34.1-44.9); Hemoglobin 12.7 g/dL (11.2-15.7); Lymphocytes # (Auto) 0.98 K/mcL (1.50-4.80); Lymphocytes % (Auto) 18.6 % (15.5-49.0); Mean Cell Volume 92.3 fL (80.0-100.0); Mean Platelet Volume 9.1 fL (8.8-12.5); Monocytes # (Auto) 0.61 K/mcL (0.10-0.90); Monocytes % (Auto) 11.6 % (1.0-12.0); Neutrophils % (Auto) 66.1 % (38.0-78.0); Platelet Count 236 K/mcL (140-440); RBC 4.04 M/mcL (3.59-5.38); WBC 5.3 K/mcL (4.5-11.0)
[2022-12-06 16:37] LABS: Creatine Kinase MB 1.1 ng/mL (<3.7)
[2022-12-06 16:38] LABS: ALT/SGPT 25 U/L (<40); AST/SGOT 25 U/L (<32); Albumin 4.3 gm/dL (3.2-5.2); Albumin/Globulin Ratio 1.4 (1.0-2.3); Alkaline Phosphatase 84 U/L (39-117); Amylase 55 U/L (28-100); Bilirubin,Total 0.5 mg/dL (0.1-1.0); Blood Urea Nitrogen 10 mg/dL (6-20); Calcium 9.9 mg/dL (8.6-10.4); Carbon Dioxide 25 mmol/L (22-30); Chloride 101 mmol/L (96-108); Globulin 3.1 gm/dL (2.2-3.7); Glomerular Filtration Rate 72; Glucose 89 mg/dL (70-105)
[2022-12-06 18:22] LABS: Appearance,Urine CLEAR (Clear); Bilirubin,Urine Negative (Negative); Color,Urine YELLOW; Culture Indicated,Urine No; Glucose,Urine (UA) Negative (Negative); Ketones,Urine Negative (Negative); Leukocyte Esterase,Urine Negative /uL (Negative); Mucus,Urine FEW /hpf; Nitrate,Urine Negative (Negative); Protein,Urine Negative (Negative); Specific Gravity,Urine 1.038 (1.000-1.035); Urine Blood 0.03 mg/dL (Negative); Urine RBC 1 /hpf (0-3); Urine Squamous Epithelial Cell 0 /hpf (0-4); Urine WBC 0 /hpf (0-4); Urobilinogen,Urine Negative
[2022-12-06] MEDS ORDERED: HYDROmorphone 0.5 MG/0.5 ML SYRINGE IV PRN (19:31)
[2022-12-06] MEDS ORDERED: ACETAMINOPHEN 325 MG TABLET PO PRN (20:27)
[2022-12-06] MEDS ORDERED: KETOROLAC 30 MG/ML VIAL IV PRN (20:27)
[2022-12-06 20:42] LABS: INR 1.8 (0.9-1.1); Prothrombin Time 21.4 sec (11.9-14.5)
[2022-12-06] MEDS ORDERED: WARFARIN 5 MG TABLET PO ONE (21:00)
[2022-12-06] MEDS: HYDROmorphone 0.5 MG/0.5 ML SYRINGE IV PRN ×2 (21:27→23:27)
[2022-12-06] MEDS: 0.9 % SODIUM CHLORIDE 10 ML SYRINGE IV SCH (21:28)
[2022-12-06] MEDS: ENOXAPARIN 100 MG/ML SYRINGE SQ SCH (21:32)
[2022-12-06] MEDS: DOCUSATE SODIUM 100 MG CAPSULE PO SCH (21:35)
[2022-12-06] MEDS: SENNOSIDES 1 TABLET PO SCH (21:35)
[2022-12-07] MEDS: HYDROmorphone 0.5 MG/0.5 ML SYRINGE IV PRN ×9 (01:17→20:55)
[2022-12-07] MEDS: HYDROcodone/APAP 5/325MG TABLET PO PRN ×6 (01:29→22:01)
[2022-12-07] MEDS: ONDANSETRON 4 MG/2 ML VIAL IV PRN (04:32)
[2022-12-07] MEDS: 0.9 % SODIUM CHLORIDE 10 ML SYRINGE IV SCH ×3 (04:32→20:59)
[2022-12-07] MEDS: DOCUSATE SODIUM 100 MG CAPSULE PO SCH ×2 (08:50→20:58)
[2022-12-07] MEDS: ENOXAPARIN 100 MG/ML SYRINGE SQ SCH ×2 (08:51→20:57)
[2022-12-07 08:57] LABS: INR 1.6 (0.9-1.1); Prothrombin Time 19.6 sec (11.9-14.5)
[2022-12-07] MEDS ORDERED: GADOBENATE DIMEGLUMINE 20 ML/VIAL IV ONE (10:42)
[2022-12-07] MEDS: GABAPENTIN 100 MG CAPSULE PO SCH ×3 (12:45→21:07)
[2022-12-07] MEDS: LIDOCAINE PATCH TOPICAL SCH (14:10)
[2022-12-07] MEDS: METOPROLOL TARTRATE 25 MG TABLET PO SCH (14:10)
[2022-12-07] MEDS ORDERED: WARFARIN 5 MG TABLET PO ONE (14:15)
[2022-12-07] MEDS: SENNOSIDES 1 TABLET PO SCH (20:58)
[2022-12-08] MEDS: HYDROcodone/APAP 5/325MG TABLET PO PRN ×4 (02:09→19:10)
[2022-12-08] MEDS: KETOROLAC 15 MG/ML VIAL IV PRN ×4 (02:13→21:53)
[2022-12-08] MEDS: HYDROmorphone 0.5 MG/0.5 ML SYRINGE IV PRN ×2 (05:17→17:08)
[2022-12-08] MEDS: 0.9 % SODIUM CHLORIDE 10 ML SYRINGE IV SCH ×3 (05:17→21:59)
[2022-12-08 06:48] LABS: INR 1.6 (0.9-1.1); Prothrombin Time 19.6 sec (11.9-14.5)
[2022-12-08 06:53] LABS: Creatine Kinase 30 U/L (24-170)
[2022-12-08] MEDS: GABAPENTIN 100 MG CAPSULE PO SCH ×3 (08:53→21:55)
[2022-12-08] MEDS: METOPROLOL TARTRATE 25 MG TABLET PO SCH (08:53)
[2022-12-08] MEDS: ENOXAPARIN 100 MG/ML SYRINGE SQ SCH ×3 (08:53→22:40)
[2022-12-08] MEDS: CITALOPRAM 20 MG TABLET PO SCH (08:54)
[2022-12-08] MEDS: DOCUSATE SODIUM 100 MG CAPSULE PO SCH ×2 (08:54→22:00)
[2022-12-08] MEDS: ARIPIPRAZOLE 5 MG TABLET PO SCH (08:54)
[2022-12-08] MEDS: LIDOCAINE PATCH TOPICAL SCH (10:03)
[2022-12-08] MEDS ORDERED: WARFARIN 7.5 MG TABLET PO ONE (14:00)
[2022-12-08] MEDS: POLYETHYLENE GLYCOL 3350 17 GM PACKET PO PRN (19:11)
[2022-12-08] MEDS ORDERED: KETOROLAC 30 MG/ML VIAL IV PRN (21:42)
[2022-12-08] MEDS: SENNOSIDES 1 TABLET PO SCH (22:00)
[2022-12-09] MEDS: HYDROcodone/APAP 5/325MG TABLET PO PRN ×5 (02:04→20:36)
[2022-12-09] MEDS: KETOROLAC 15 MG/ML VIAL ONE ×2 (03:18→03:26)
[2022-12-09] MEDS: 0.9 % SODIUM CHLORIDE 10 ML SYRINGE IV SCH ×3 (05:54→21:50)
[2022-12-09 06:55] LABS: Basophils # (Auto) 0.01 K/mcL (0.00-0.30); Basophils % (Auto) 0.2 % (0.0-2.0); Eosinophils # (Auto) 0.17 K/mcL (0.00-0.70); Eosinophils % (Auto) 3.5 % (0.0-7.0); Hematocrit 37.3 % (34.1-44.9); Hemoglobin 12.4 g/dL (11.2-15.7); Lymphocytes # (Auto) 1.28 K/mcL (1.50-4.80); Lymphocytes % (Auto) 26.6 % (15.5-49.0); Mean Cell Volume 94.4 fL (80.0-100.0); Mean Corpuscular HGB Conc 33.2 g/dL (31.0-36.0); Mean Platelet Volume 9.5 fL (8.8-12.5); Monocytes # (Auto) 0.51 K/mcL (0.10-0.90); Monocytes % (Auto) 10.6 % (1.0-12.0); Neutrophils % (Auto) 58.9 % (38.0-78.0); Platelet Count 259 K/mcL (140-440); RBC 3.95 M/mcL (3.59-5.38); Red Cell Distribution Width 11.9 % (11.5-14.5); WBC 4.8 K/mcL (4.5-11.0)
[2022-12-09 07:06] LABS: INR 1.4 (0.9-1.1); Prothrombin Time 17.4 sec (11.9-14.5)
[2022-12-09 07:41] LABS: Blood Urea Nitrogen 8 mg/dL (6-20); Calcium 9.7 mg/dL (8.6-10.4); Carbon Dioxide 28 mmol/L (22-30); Chloride 104 mmol/L (96-108); Glomerular Filtration Rate 94; Glucose 94 mg/dL (70-105)
[2022-12-09] MEDS ORDERED: 0.9 % SODIUM CHLORIDE 250 ML IV SCH (08:30)
[2022-12-09] MEDS: DOCUSATE SODIUM 100 MG CAPSULE PO SCH ×2 (08:40→21:49)
[2022-12-09] MEDS: CITALOPRAM 20 MG TABLET PO SCH (08:40)
[2022-12-09] MEDS: METOPROLOL TARTRATE 25 MG TABLET PO SCH (08:40)
[2022-12-09] MEDS: ARIPIPRAZOLE 5 MG TABLET PO SCH (08:41)
[2022-12-09] MEDS: ENOXAPARIN 100 MG/ML SYRINGE SQ SCH (08:41)
[2022-12-09] MEDS: LIDOCAINE PATCH TOPICAL SCH (08:41)
[2022-12-09] MEDS: HYDROmorphone 0.5 MG/0.5 ML SYRINGE IV PRN ×5 (08:55→21:50)
[2022-12-09] MEDS: KETOROLAC 15 MG/ML VIAL IV PRN (12:16)
[2022-12-09] MEDS ORDERED: ENOXAPARIN 100 MG/ML SYRINGE SQ ONE (21:00)
[2022-12-09] MEDS: SENNOSIDES 1 TABLET PO SCH (21:49)
[2022-12-09] MEDS ORDERED: ENOXAPARIN 100 MG/ML SYRINGE ONE (22:06)
[2022-12-10] MEDS: HYDROcodone/APAP 5/325MG TABLET PO PRN ×4 (00:42→18:13)
[2022-12-10] MEDS: ONDANSETRON 4 MG/2 ML VIAL IV PRN (01:44)
[2022-12-10] MEDS: HYDROmorphone 0.5 MG/0.5 ML SYRINGE IV PRN ×5 (04:09→18:13)
[2022-12-10] MEDS: 0.9 % SODIUM CHLORIDE 10 ML SYRINGE IV SCH ×3 (04:10→22:41)
[2022-12-10] MEDS: KETOROLAC 15 MG/ML VIAL IV PRN ×2 (05:46→22:41)
[2022-12-10 07:07] LABS: INR 1.4 (0.9-1.1); Prothrombin Time 17.5 sec (11.9-14.5)
[2022-12-10] MEDS ORDERED: IPRATROPIUM/ALBUTEROL 3 ML AMPUL.NEB NEB PRN ×2 (08:00→14:36)
[2022-12-10] MEDS ORDERED: SCOPOLAMINE 1 PATCH PATCH TOPICAL PRN (08:00)
[2022-12-10] MEDS: LIDOCAINE PATCH TOPICAL SCH (08:45)
[2022-12-10] MEDS: DOCUSATE SODIUM 100 MG CAPSULE PO SCH ×2 (08:45→20:31)
[2022-12-10] MEDS: ARIPIPRAZOLE 5 MG TABLET PO SCH (08:45)
[2022-12-10] MEDS: METOPROLOL TARTRATE 25 MG TABLET PO SCH (08:45)
[2022-12-10] MEDS: CITALOPRAM 20 MG TABLET PO SCH (08:45)
[2022-12-10] MEDS: LACTATED RINGERS 1,000 ML IV SCH ×2 (11:53→20:31)
[2022-12-10] MEDS ORDERED: BUPIVACAINE 0.25% 50 ML VIAL IJ ONE (14:00)
[2022-12-10] MEDS ORDERED: ceFAZolin 2 GM in DEXTROSE 5% IN WATER 50 ML IV SCH (14:00)
[2022-12-10] MEDS ORDERED: PROPOFOL 200 MG/20 ML VIAL IV ONE (14:17)
[2022-12-10] MEDS ORDERED: SUGAMMADEX SODIUM 200 MG/2 ML VIAL IV ONE (14:17)
[2022-12-10] MEDS ORDERED: GLYCOPYRROLATE 0.2 MG/ML VIAL IV ONE (14:17)
[2022-12-10] MEDS ORDERED: LIDOCAINE HCL/PF 100 MG/5 ML SYRINGE IV ONE (14:17)
[2022-12-10] MEDS ORDERED: ONDANSETRON 4 MG/2 ML VIAL ONE (14:17)
[2022-12-10] MEDS ORDERED: HYDROmorphone 1 MG/ML SYRINGE ONE (14:17)
[2022-12-10] MEDS ORDERED: ACETAMINOPHEN 1,000 MG/100 ML BAG IV ONE ×2 (14:17→14:28)
[2022-12-10] MEDS ORDERED: ROCURONIUM 10 MG/ML ML IV ONE (14:17)
[2022-12-10] MEDS ORDERED: fentaNYL 100 MCG/2 ML VIAL IV ONE (14:17)
[2022-12-10] MEDS ORDERED: DEXAMETHASONE 10 MG/ML VIAL ONE (14:17)
[2022-12-10] MEDS ORDERED: MEPERIDINE 25 MG/ML VIAL IV PRN (14:36)
[2022-12-10] MEDS ORDERED: fentaNYL 100 MCG/2 ML VIAL IV PRN (14:36)
[2022-12-10] MEDS ORDERED: NALOXONE HCL 0.4 MG/ML VIAL IV PRN (14:36)
[2022-12-10] MEDS ORDERED: METHOCARBAMOL 1,000 MG/10 ML VIAL IV PRN (14:36)
[2022-12-10] MEDS: PROMETHAZINE 25 MG/ML VIAL IV PRN ×2 (15:40→15:55)
[2022-12-10] MEDS: cefTRIAXone 1 GM VIAL IV SCH (17:06)
[2022-12-10] MEDS: POLYETHYLENE GLYCOL 3350 17 GM PACKET PO PRN (20:31)
[2022-12-10] MEDS: SENNOSIDES 1 TABLET PO SCH (20:31)
[2022-12-11] MEDS: HYDROcodone/APAP 5/325MG TABLET PO PRN ×5 (02:25→21:05)
[2022-12-11] MEDS: KETOROLAC 15 MG/ML VIAL IV PRN (05:38)
[2022-12-11] MEDS: 0.9 % SODIUM CHLORIDE 10 ML SYRINGE IV SCH ×3 (05:38→21:06)
[2022-12-11 06:34] LABS: Hematocrit 35.7 % (34.1-44.9); Hemoglobin 11.7 g/dL (11.2-15.7); Mean Cell Volume 97.5 fL (80.0-100.0); Mean Corpuscular HGB Conc 32.8 g/dL (31.0-36.0); Mean Platelet Volume 9.1 fL (8.8-12.5); Platelet Count 211 K/mcL (140-440); RBC 3.66 M/mcL (3.59-5.38); Red Cell Distribution Width 12.1 % (11.5-14.5); WBC 2.9 K/mcL (4.5-11.0)
[2022-12-11 06:44] LABS: INR 1.2 (0.9-1.1); Prothrombin Time 15.5 sec (11.9-14.5)
[2022-12-11] MEDS ORDERED: PYRIDOSTIGMINE 60 MG TABLET PO PRN (08:12)
[2022-12-11 08:34] LABS: Basophils % (Manual) 1 % (0-2); Eosinophils % (Manual) 4 % (0-7); Lymphocytes % 23 % (15-49); Monocytes % (Manual) 8 % (1-12); Platelet Estimate NORMAL (Normal); RBC Morphology NORMAL (Normal); Segmented Neutrophils % 64 % (38-78)
[2022-12-11] MEDS: ARIPIPRAZOLE 5 MG TABLET PO SCH (09:10)
[2022-12-11] MEDS: LIDOCAINE PATCH TOPICAL SCH ×2 (09:10→09:16)
[2022-12-11] MEDS: METOPROLOL TARTRATE 25 MG TABLET PO SCH (09:10)
[2022-12-11] MEDS: CITALOPRAM 20 MG TABLET PO SCH (09:11)
[2022-12-11] MEDS: DOCUSATE SODIUM 100 MG CAPSULE PO SCH ×2 (09:11→21:05)
[2022-12-11] MEDS: cefTRIAXone 1 GM VIAL IV SCH (09:11)
[2022-12-11] MEDS: HYDROmorphone 0.5 MG/0.5 ML SYRINGE IV PRN ×5 (09:57→22:37)
[2022-12-11] MEDS ORDERED: HEPARIN SOD,PORK IN 0.45% NACL 500 ML IV ONE (10:22)
[2022-12-11] MEDS ORDERED: HEPARIN 5,000 UNIT/ML VIAL ONE (10:25)
[2022-12-11] MEDS: HEPARIN 5,000 UNIT/ML VIAL IV ONE ×2 (10:29→11:52)
[2022-12-11] MEDS: HEPARIN SOD,PORK IN 0.45% NACL 25,000 UNIT in PREMIX 1 BAG IV SCH ×2 (11:52→22:38)
[2022-12-11] MEDS: SENNOSIDES 1 TABLET PO SCH (21:05)
[2022-12-12] MEDS: HYDROcodone/APAP 5/325MG TABLET PO PRN ×4 (02:12→23:09)
[2022-12-12] MEDS: HYDROmorphone 0.5 MG/0.5 ML SYRINGE IV PRN ×5 (02:12→19:19)
[2022-12-12] MEDS ORDERED: HEPARIN SOD,PORK IN 0.45% NACL 500 ML IV ONE (04:57)
[2022-12-12] MEDS: 0.9 % SODIUM CHLORIDE 10 ML SYRINGE IV SCH ×3 (07:05→21:05)
[2022-12-12] MEDS: HEPARIN SOD,PORK IN 0.45% NACL 25,000 UNIT in PREMIX 1 BAG IV SCH ×2 (07:16→12:39)
[2022-12-12 07:39] LABS: Basophils # (Auto) 0.02 K/mcL (0.00-0.30); Basophils % (Auto) 0.7 % (0.0-2.0); Eosinophils # (Auto) 0.14 K/mcL (0.00-0.70); Eosinophils % (Auto) 4.6 % (0.0-7.0); Hematocrit 26.4 % (34.1-44.9); Hemoglobin 8.6 g/dL (11.2-15.7); Lymphocytes # (Auto) 1.16 K/mcL (1.50-4.80); Lymphocytes % (Auto) 38.2 % (15.5-49.0); Mean Cell Volume 96.7 fL (80.0-100.0); Mean Corpuscular HGB Conc 32.6 g/dL (31.0-36.0); Mean Platelet Volume 9.2 fL (8.8-12.5); Monocytes # (Auto) 0.36 K/mcL (0.10-0.90); Monocytes % (Auto) 11.8 % (1.0-12.0); Neutrophils % (Auto) 44.4 % (38.0-78.0); Platelet Count 176 K/mcL (140-440); RBC 2.73 M/mcL (3.59-5.38); Red Cell Distribution Width 11.9 % (11.5-14.5)
[2022-12-12 08:03] LABS: INR 1.1 (0.9-1.1); Prothrombin Time 14.6 sec (11.9-14.5)
[2022-12-12] MEDS ORDERED: HEPARIN 5,000 UNIT/ML VIAL IV ONE (08:45)
[2022-12-12] MEDS: ARIPIPRAZOLE 5 MG TABLET PO SCH (08:55)
[2022-12-12] MEDS: DOCUSATE SODIUM 100 MG CAPSULE PO SCH ×2 (08:56→19:18)
[2022-12-12] MEDS: METOPROLOL TARTRATE 25 MG TABLET PO SCH (08:56)
[2022-12-12] MEDS: CITALOPRAM 20 MG TABLET PO SCH (08:56)
[2022-12-12] MEDS: LIDOCAINE PATCH TOPICAL SCH (09:28)
[2022-12-12] MEDS: cefTRIAXone 1 GM VIAL IV SCH (09:28)
[2022-12-12 10:08] LABS: ALT/SGPT 109 U/L (<40); AST/SGOT 114 U/L (<32); Albumin 3.1 gm/dL (3.2-5.2); Albumin/Globulin Ratio 1.3 (1.0-2.3); Alkaline Phosphatase 67 U/L (39-117); Bilirubin,Direct < 0.2 mg/dL (0-0.3); Bilirubin,Total 0.3 mg/dL (0.1-1.0); Blood Urea Nitrogen 5 mg/dL (6-20); Calcium 7.9 mg/dL (8.6-10.4); Carbon Dioxide 23 mmol/L (22-30); Chloride 104 mmol/L (96-108); Globulin 2.4 gm/dL (2.2-3.7); Glomerular Filtration Rate 116; Glucose 92 mg/dL (70-105); Lactate Dehydrogenase 218 U/L (135-225); Phosphorous 3.1 mg/dL (2.5-4.5); Triglycerides 138 mg/dL (<150); Uric Acid 5.6 mg/dL (2.5-8.0)
[2022-12-12] MEDS ORDERED: IOPAMIDOL 100 ML BOTTLE IV ONE (11:48)
[2022-12-12] MEDS: ONDANSETRON 4 MG/2 ML VIAL IV PRN ×2 (12:27→23:09)
[2022-12-12] MEDS: LORazepam 0.5 MG TABLET PO PRN (13:50)
[2022-12-12] MEDS: SENNOSIDES 1 TABLET PO SCH (19:18)
[2022-12-13] MEDS: HYDROmorphone 0.5 MG/0.5 ML SYRINGE IV PRN ×3 (00:39→14:13)
[2022-12-13] MEDS: LORazepam 0.5 MG TABLET PO PRN (01:55)
[2022-12-13] MEDS: HEPARIN SOD,PORK IN 0.45% NACL 25,000 UNIT in PREMIX 1 BAG IV SCH ×2 (02:15→03:50)
[2022-12-13] MEDS ORDERED: HEPARIN SOD,PORK IN 0.45% NACL 500 ML IV ONE (03:46)
[2022-12-13] MEDS: ONDANSETRON 4 MG/2 ML VIAL IV PRN (05:40)
[2022-12-13] MEDS: 0.9 % SODIUM CHLORIDE 10 ML SYRINGE IV SCH ×2 (05:49→14:14)
[2022-12-13 07:06] LABS: Basophils # (Auto) 0.03 K/mcL (0.00-0.30); Basophils % (Auto) 0.7 % (0.0-2.0); Eosinophils # (Auto) 0.24 K/mcL (0.00-0.70); Eosinophils % (Auto) 5.7 % (0.0-7.0); Hemoglobin 10.7 g/dL (11.2-15.7); Lymphocytes # (Auto) 1.61 K/mcL (1.50-4.80); Lymphocytes % (Auto) 38.2 % (15.5-49.0); Mean Corpuscular HGB Conc 33.4 g/dL (31.0-36.0); Mean Platelet Volume 9.2 fL (8.8-12.5); Monocytes # (Auto) 0.41 K/mcL (0.10-0.90); Monocytes % (Auto) 9.7 % (1.0-12.0); Neutrophils % (Auto) 45.2 % (38.0-78.0); Platelet Count 237 K/mcL (140-440); RBC 3.37 M/mcL (3.59-5.38); WBC 4.2 K/mcL (4.5-11.0)
[2022-12-13 07:28] LABS: ALT/SGPT 111 U/L (<40); AST/SGOT 92 U/L (<32); Albumin 3.4 gm/dL (3.2-5.2); Albumin/Globulin Ratio 1.1 (1.0-2.3); Alkaline Phosphatase 77 U/L (39-117); Bilirubin,Total 0.3 mg/dL (0.1-1.0); Blood Urea Nitrogen 7 mg/dL (6-20); Calcium 9.2 mg/dL (8.6-10.4); Carbon Dioxide 25 mmol/L (22-30); Chloride 102 mmol/L (96-108); Glomerular Filtration Rate 94; Glucose 94 mg/dL (70-105)
[2022-12-13] MEDS: POLYETHYLENE GLYCOL 3350 17 GM PACKET PO PRN (08:39)
[2022-12-13] MEDS: ARIPIPRAZOLE 5 MG TABLET PO SCH (08:40)
[2022-12-13] MEDS: METOPROLOL TARTRATE 25 MG TABLET PO SCH (08:40)
[2022-12-13] MEDS: DOCUSATE SODIUM 100 MG CAPSULE PO SCH (08:40)
[2022-12-13] MEDS: cefTRIAXone 1 GM VIAL IV SCH (08:40)
[2022-12-13] MEDS: CITALOPRAM 20 MG TABLET PO SCH (08:40)
[2022-12-13] MEDS: LIDOCAINE PATCH TOPICAL SCH (08:47)
[2022-12-13] MEDS ORDERED: ENOXAPARIN 100 MG/ML SYRINGE SQ SCH (10:05)
[2022-12-13] MEDS ORDERED: WARFARIN 7.5 MG TABLET PO ONE (14:00)
[2022-12-13] MEDS: HYDROcodone/APAP 5/325MG TABLET PO PRN (14:14)
== END 2022-12-13 16:36 | disposition home or self-care (01) | DRG 357 ==
LOC: ED 14:46 → MEDSUR 20:22
PROVIDERS: ADMIT Internal Medicine; ATTEND Internal Medicine

== ENCOUNTER 2024-01-02 13:02 | Inpatient (IN) ==
[2024-01-02] MEDS ORDERED: IOPAMIDOL 100 ML BOTTLE IV ONE (13:03)
[2024-01-02] MEDS: ASPIRIN 81 MG TAB.CHEW CHEWED ONE (13:39)
[2024-01-02 13:49] LABS: Basophils # (Auto) 0.04 K/mcL (0.00-0.30); Basophils % (Auto) 0.4 % (0.0-2.0); Eosinophils # (Auto) 0.19 K/mcL (0.00-0.70); Eosinophils % (Auto) 1.9 % (0.0-7.0); Hematocrit 41.1 % (34.1-44.9); Lymphocytes # (Auto) 2.14 K/mcL (1.50-4.80); Lymphocytes % (Auto) 20.9 % (15.5-49.0); Mean Cell Volume 94.7 fL (80.0-100.0); Mean Corpuscular HGB Conc 34.1 g/dL (31.0-36.0); Mean Platelet Volume 9.2 fL (8.8-12.5); Monocytes # (Auto) 0.74 K/mcL (0.10-0.90); Monocytes % (Auto) 7.2 % (1.0-12.0); Neutrophils % (Auto) 69.4 % (38.0-78.0); Platelet Count 350 K/mcL (140-440); RBC 4.34 M/mcL (3.59-5.38); Red Cell Distribution Width 11.9 % (11.5-14.5); WBC 10.2 K/mcL (4.5-11.0)
[2024-01-02] MEDS: KETOROLAC 15 MG/ML VIAL IV ONE (13:50)
[2024-01-02 13:57] LABS: ALT/SGPT 36 U/L (<40); AST/SGOT 33 U/L (<32); Albumin 4.6 gm/dL (3.2-5.2); Albumin/Globulin Ratio 1.3 (1.0-2.3); Alkaline Phosphatase 98 U/L (39-117); Bilirubin,Total 0.5 mg/dL (0.1-1.0); Blood Urea Nitrogen 11 mg/dL (6-20); Calcium 10.1 mg/dL (8.6-10.4); Carbon Dioxide 23 mmol/L (22-30); Chloride 101 mmol/L (96-108); Globulin 3.5 gm/dL (2.2-3.7); Glomerular Filtration Rate 93; Glucose 106 mg/dL (70-105); Potassium 3.8 mmol/L (3.3-5.1); Sodium 140 mmol/L (133-145)
[2024-01-02] MEDS: morphine 4 MG/ML VIAL IV ONE (13:57)
[2024-01-02 14:12] LABS: Prothrombin Time 13.8 sec (11.9-14.5)
[2024-01-02] MEDS: HYDROmorphone 0.5 MG/0.5 ML SYRINGE IV ONE ×3 (14:30→17:29)
[2024-01-02] MEDS: 0.9 % SODIUM CHLORIDE 1,000 ML IV ONE (14:30)
[2024-01-02] MEDS: DILTIAZEM 25 MG/5 ML VIAL IV ONE (14:30)
[2024-01-02] MEDS ORDERED: MAGNESIUM SULFATE 2 GM/50 ML BAG IV PRN (21:20)
[2024-01-02] MEDS ORDERED: POTASSIUM CHLORIDE 20 MEQ TABLET PO PRN ×2 (21:20)
[2024-01-02] MEDS ORDERED: POTASSIUM CHLORIDE 40 MEQ in DEXTROSE 5% IN WATER 500 ML IV PRN (21:20)
[2024-01-02] MEDS ORDERED: IPRATROPIUM/ALBUTEROL 3 ML AMPUL.NEB NEB PRN (21:20)
[2024-01-02] MEDS: 0.9 % SODIUM CHLORIDE 10 ML SYRINGE IV SCH (21:20)
[2024-01-02] MEDS: KETOROLAC 15 MG/ML VIAL IV PRN (21:25)
[2024-01-02] MEDS: KETOROLAC 15 MG/ML VIAL ONE (21:31)
[2024-01-02] MEDS: COLCHICINE 0.6 MG CAPSULE PO SCH (21:35)
[2024-01-02] MEDS: IBUPROFEN 600 MG TABLET PO SCH (21:35)
[2024-01-02] MEDS: DILTIAZEM 120 MG CAP.XL.24H PO SCH (21:36)
[2024-01-02] MEDS: morphine 4 MG/ML VIAL IV PRN (23:15)
[2024-01-03] MEDS: ACETAMINOPHEN 325 MG TABLET PO PRN (02:27)
[2024-01-03 07:00] LABS: ALT/SGPT 30 U/L (<40); AST/SGOT 26 U/L (<32); Albumin 3.9 gm/dL (3.2-5.2); Albumin/Globulin Ratio 1.5 (1.0-2.3); Alkaline Phosphatase 74 U/L (39-117); Bilirubin,Direct 0.2 mg/dL (<0.3); Bilirubin,Total 0.7 mg/dL (0.1-1.0); Blood Urea Nitrogen 14 mg/dL (6-20); C-Reactive Protein 7.72 mg/dL (0.03-0.80); Calcium 9.7 mg/dL (8.6-10.4); Carbon Dioxide 25 mmol/L (22-30); Chloride 102 mmol/L (96-108); Globulin 2.6 gm/dL (2.2-3.7); Glomerular Filtration Rate 93; Glucose 135 mg/dL (70-105); Lactate Dehydrogenase 137 U/L (135-225); Phosphorous 4.3 mg/dL (2.5-4.5); Potassium 3.4 mmol/L (3.3-5.1); Sodium 138 mmol/L (133-145); Triglycerides 166 mg/dL (<150); Uric Acid 6.4 mg/dL (2.5-8.0)
[2024-01-03] MEDS: HYDROmorphone 1 MG/ML SYRINGE IV PRN ×2 (07:39→11:12)
[2024-01-03] MEDS: fentaNYL 100 MCG/2 ML VIAL IV PRN (08:33)
[2024-01-03] MEDS: DILTIAZEM 180 MG CAP.XL.24H PO SCH (08:39)
[2024-01-03] MEDS: CITALOPRAM 20 MG TABLET PO SCH (08:39)
[2024-01-03] MEDS: APIXABAN 5 MG TABLET PO SCH (08:40)
[2024-01-03] MEDS: PANTOPRAZOLE 40 MG PACKET PO SCH (08:41)
[2024-01-03] MEDS: LORazepam 2 MG/ML VIAL IV PRN (09:16)
[2024-01-03] MEDS: HYDROmorphone 0.5 MG/0.5 ML SYRINGE IV SCH (09:16)
[2024-01-03] MEDS: METOPROLOL TARTRATE 5 MG/5 ML VIAL IV PRN (11:09)
[2024-01-03] MEDS: ONDANSETRON 4 MG/2 ML VIAL IV PRN (14:41)
[2024-01-03] MEDS: PROCHLORPERAZINE 10 MG/2 ML VIAL IV PRN (15:12)
[2024-01-03] MEDS: SENNOSIDES 1 TABLET PO PRN (19:57)
[2024-01-04] MEDS: oxyCODONE/APAP 5/325MG TABLET PO PRN (01:18)
[2024-01-04 06:03] LABS: Basophils # (Auto) 0.02 K/mcL (0.00-0.30); Basophils % (Auto) 0.2 % (0.0-2.0); Eosinophils # (Auto) 0.08 K/mcL (0.00-0.70); Eosinophils % (Auto) 0.8 % (0.0-7.0); Hematocrit 31.3 % (34.1-44.9); Hemoglobin 10.7 g/dL (11.2-15.7); Lymphocytes # (Auto) 1.03 K/mcL (1.50-4.80); Lymphocytes % (Auto) 10.3 % (15.5-49.0); Mean Cell Volume 96.6 fL (80.0-100.0); Mean Corpuscular HGB Conc 34.2 g/dL (31.0-36.0); Mean Platelet Volume 9.6 fL (8.8-12.5); Monocytes # (Auto) 0.84 K/mcL (0.10-0.90); Monocytes % (Auto) 8.4 % (1.0-12.0); Neutrophils % (Auto) 80.1 % (38.0-78.0); Platelet Count 241 K/mcL (140-440); RBC 3.24 M/mcL (3.59-5.38)
[2024-01-04 06:18] LABS: Erythrocyte Sedimentation Rate 21 mm/hr (0-20)
[2024-01-04 06:31] LABS: ALT/SGPT 38 U/L (<40); AST/SGOT 39 U/L (<32); Albumin 3.9 gm/dL (3.2-5.2); Albumin/Globulin Ratio 1.3 (1.0-2.3); Alkaline Phosphatase 84 U/L (39-117); Bilirubin,Direct 0.4 mg/dL (<0.3); Bilirubin,Total 0.8 mg/dL (0.1-1.0); Blood Urea Nitrogen 16 mg/dL (6-20); Calcium 9.6 mg/dL (8.6-10.4); Carbon Dioxide 23 mmol/L (22-30); Chloride 100 mmol/L (96-108); Globulin 2.9 gm/dL (2.2-3.7); Glomerular Filtration Rate 81; Glucose 129 mg/dL (70-105); Lactate Dehydrogenase 205 U/L (135-225); Phosphorous 4.8 mg/dL (2.5-4.5); Potassium 4.6 mmol/L (3.3-5.1); Sodium 136 mmol/L (133-145); Triglycerides 98 mg/dL (<150); Uric Acid 6.7 mg/dL (2.5-8.0)
[2024-01-04] MEDS: FUROSEMIDE 40 MG/4 ML VIAL IV ONE (10:27)
[2024-01-04] MEDS: oxyCODONE/APAP 10/325MG TABLET PO PRN (10:52)
[2024-01-04] MEDS: IBUPROFEN 600 MG TABLET PO SCH (14:09)
[2024-01-04] MEDS: predniSONE 20 MG TABLET PO SCH (15:40)
[2024-01-04 17:40] LABS: Appearance,Urine Slightly Cloudy (Clear); Bilirubin,Urine Small mg/dL (Negative); Color,Urine Yellow; Culture Indicated,Urine No; Glucose,Urine (UA) Negative (Negative); Ketones,Urine Negative (Negative); Leukocyte Esterase,Urine Negative /uL (Negative); Nitrate,Urine Negative (Negative); PH,Urine 5.5 (5.0-9.0); Protein,Urine Negative (Negative); Specific Gravity,Urine 1.025 (1.000-1.035); Urine Blood Negative ery/mcL (Negative); Urobilinogen,Urine Normal
[2024-01-04 22:18] LABS: INR 1.2 (0.9-1.1); Prothrombin Time 15.8 sec (11.9-14.5)
[2024-01-04 22:22] LABS: ALT/SGPT 46 U/L (<40); AST/SGOT 42 U/L (<32); Albumin 4.5 gm/dL (3.2-5.2); Albumin/Globulin Ratio 1.3 (1.0-2.3); Alkaline Phosphatase 103 U/L (39-117); Bilirubin,Direct 0.5 mg/dL (<0.3); Bilirubin,Total 0.9 mg/dL (0.1-1.0); Blood Urea Nitrogen 15 mg/dL (6-20); Calcium 10.2 mg/dL (8.6-10.4); Carbon Dioxide 26 mmol/L (22-30); Chloride 95 mmol/L (96-108); Globulin 3.6 gm/dL (2.2-3.7); Glomerular Filtration Rate 71; Glucose 156 mg/dL (70-105); Lactate Dehydrogenase 185 U/L (135-225); Phosphorous 3.6 mg/dL (2.5-4.5); Potassium 4.4 mmol/L (3.3-5.1); Sodium 134 mmol/L (133-145); Triglycerides 112 mg/dL (<150); Uric Acid 5.9 mg/dL (2.5-8.0)
[2024-01-04 22:25] LABS: Basophils # (Auto) 0.01 K/mcL (0.00-0.30); Basophils % (Auto) 0.1 % (0.0-2.0); Eosinophils # (Auto) 0 K/mcL (0.00-0.70); Eosinophils % (Auto) 0 % (0.0-7.0); Hematocrit 34.3 % (34.1-44.9); Hemoglobin 11.5 g/dL (11.2-15.7); Lymphocytes # (Auto) 0.51 K/mcL (1.50-4.80); Mean Cell Volume 95.3 fL (80.0-100.0); Mean Corpuscular HGB Conc 33.5 g/dL (31.0-36.0); Mean Platelet Volume 9.6 fL (8.8-12.5); Monocytes # (Auto) 0.26 K/mcL (0.10-0.90); Neutrophils % (Auto) 93.7 % (38.0-78.0); Platelet Count 338 K/mcL (140-440); Red Cell Distribution Width 11.8 % (11.5-14.5); WBC 12.8 K/mcL (4.5-11.0)
[2024-01-05 06:31] LABS: Erythrocyte Sedimentation Rate 42 mm/hr (0-20)
[2024-01-05 06:49] LABS: ALT/SGPT 52 U/L (<40); AST/SGOT 48 U/L (<32); Albumin 4.2 gm/dL (3.2-5.2); Albumin/Globulin Ratio 1.5 (1.0-2.3); Alkaline Phosphatase 105 U/L (39-117); Basophils # (Auto) 0.03 K/mcL (0.00-0.30); Basophils % (Auto) 0.3 % (0.0-2.0); Bilirubin,Direct 0.4 mg/dL (<0.3); Bilirubin,Total 0.7 mg/dL (0.1-1.0); Blood Urea Nitrogen 16 mg/dL (6-20); Calcium 9.8 mg/dL (8.6-10.4); Carbon Dioxide 25 mmol/L (22-30); Chloride 95 mmol/L (96-108); Eosinophils # (Auto) 0 K/mcL (0.00-0.70); Eosinophils % (Auto) 0 % (0.0-7.0); Globulin 2.8 gm/dL (2.2-3.7); Glomerular Filtration Rate 93; Glucose 146 mg/dL (70-105); Hematocrit 30.7 % (34.1-44.9); Hemoglobin 10.4 g/dL (11.2-15.7); Lactate Dehydrogenase 210 U/L (135-225); Lymphocytes # (Auto) 0.64 K/mcL (1.50-4.80); Lymphocytes % (Auto) 6.2 % (15.5-49.0); Mean Cell Volume 95.6 fL (80.0-100.0); Mean Corpuscular HGB Conc 33.9 g/dL (31.0-36.0); Mean Platelet Volume 10.1 fL (8.8-12.5); Monocytes # (Auto) 0.46 K/mcL (0.10-0.90); Monocytes % (Auto) 4.5 % (1.0-12.0); Neutrophils % (Auto) 88.8 % (38.0-78.0); Phosphorous 3.9 mg/dL (2.5-4.5); Platelet Count 318 K/mcL (140-440); RBC 3.21 M/mcL (3.59-5.38); Red Cell Distribution Width 11.7 % (11.5-14.5); Sodium 134 mmol/L (133-145); Triglycerides 107 mg/dL (<150); Uric Acid 5.6 mg/dL (2.5-8.0); WBC 10.3 K/mcL (4.5-11.0)
[2024-01-05] MEDS ORDERED: ALBUTEROL SULFATE 2.5 MG/3 ML NEBULIZER NEB PRN (07:26)
[2024-01-05] MEDS: diphenhydrAMINE 25 MG CAPSULE PO PRN (20:23)
[2024-01-05] MEDS: MIRTAZAPINE 15 MG TABLET PO PRN (22:11)
[2024-01-06] MEDS: POLYETHYLENE GLYCOL 3350 17 GM PACKET PO PRN (02:55)
[2024-01-06 06:41] LABS: C-Reactive Protein 10.4 mg/dL (0.03-0.80)
[2024-01-06 06:44] LABS: ALT/SGPT 74 U/L (<40); AST/SGOT 55 U/L (<32); Albumin/Globulin Ratio 1.7 (1.0-2.3); Alkaline Phosphatase 97 U/L (39-117); Bilirubin,Direct < 0.2 mg/dL (0-0.3); Bilirubin,Total 0.3 mg/dL (0.1-1.0); Blood Urea Nitrogen 11 mg/dL (6-20); Calcium 9.3 mg/dL (8.6-10.4); Carbon Dioxide 27 mmol/L (22-30); Chloride 97 mmol/L (96-108); Globulin 2.4 gm/dL (2.2-3.7); Glomerular Filtration Rate 109; Glucose 114 mg/dL (70-105); Lactate Dehydrogenase 146 U/L (135-225); Phosphorous 2.6 mg/dL (2.5-4.5); Potassium 4.3 mmol/L (3.3-5.1); Sodium 137 mmol/L (133-145); Triglycerides 104 mg/dL (<150); Uric Acid 5.3 mg/dL (2.5-8.0)
[2024-01-06 06:56] LABS: Basophils # (Auto) 0.01 K/mcL (0.00-0.30); Basophils % (Auto) 0.1 % (0.0-2.0); Eosinophils # (Auto) 0.03 K/mcL (0.00-0.70); Eosinophils % (Auto) 0.4 % (0.0-7.0); Hemoglobin 9.5 g/dL (11.2-15.7); Lymphocytes # (Auto) 1.39 K/mcL (1.50-4.80); Lymphocytes % (Auto) 16.4 % (15.5-49.0); Mean Cell Volume 96.2 fL (80.0-100.0); Mean Corpuscular HGB Conc 33.9 g/dL (31.0-36.0); Mean Platelet Volume 9.7 fL (8.8-12.5); Monocytes # (Auto) 0.92 K/mcL (0.10-0.90); Monocytes % (Auto) 10.9 % (1.0-12.0); Neutrophils % (Auto) 71.8 % (38.0-78.0); Platelet Count 324 K/mcL (140-440); RBC 2.91 M/mcL (3.59-5.38); Red Cell Distribution Width 11.7 % (11.5-14.5); WBC 8.5 K/mcL (4.5-11.0)
[2024-01-06] MEDS ORDERED: IOPAMIDOL 100 ML BOTTLE IV ONE (11:52)
[2024-01-06] MEDS: MELATONIN 3 MG TABLET PO SCH (20:04)
[2024-01-06] MEDS: MELATONIN 3 MG TABLET PO ONE (20:05)
[2024-01-07 07:42] LABS: Basophils # (Auto) 0.03 K/mcL (0.00-0.30); Basophils % (Auto) 0.4 % (0.0-2.0); Eosinophils # (Auto) 0.04 K/mcL (0.00-0.70); Eosinophils % (Auto) 0.5 % (0.0-7.0); Hematocrit 30.9 % (34.1-44.9); Hemoglobin 10.2 g/dL (11.2-15.7); Lymphocytes # (Auto) 1.86 K/mcL (1.50-4.80); Lymphocytes % (Auto) 23.5 % (15.5-49.0); Mean Cell Volume 97.8 fL (80.0-100.0); Mean Platelet Volume 9.4 fL (8.8-12.5); Monocytes # (Auto) 0.63 K/mcL (0.10-0.90); Neutrophils % (Auto) 66.5 % (38.0-78.0); Platelet Count 395 K/mcL (140-440); RBC 3.16 M/mcL (3.59-5.38); Red Cell Distribution Width 11.7 % (11.5-14.5); WBC 7.9 K/mcL (4.5-11.0)
[2024-01-07 07:57] LABS: ALT/SGPT 107 U/L (<40); AST/SGOT 66 U/L (<32); Albumin 3.9 gm/dL (3.2-5.2); Albumin/Globulin Ratio 1.3 (1.0-2.3); Alkaline Phosphatase 93 U/L (39-117); Bilirubin,Direct < 0.2 mg/dL (0-0.3); Bilirubin,Total 0.3 mg/dL (0.1-1.0); Blood Urea Nitrogen 14 mg/dL (6-20); Calcium 9.5 mg/dL (8.6-10.4); Carbon Dioxide 28 mmol/L (22-30); Chloride 101 mmol/L (96-108); Glomerular Filtration Rate 109; Glucose 90 mg/dL (70-105); Lactate Dehydrogenase 163 U/L (135-225); Phosphorous 2.2 mg/dL (2.5-4.5); Potassium 3.8 mmol/L (3.3-5.1); Sodium 141 mmol/L (133-145); Triglycerides 93 mg/dL (<150); Uric Acid 5.5 mg/dL (2.5-8.0)
[2024-01-07] MEDS: NEUTRA PHOS 1 PACKET PO SCH (09:26)
[2024-01-07 16:46] LABS: Hepatitis C Virus Antibody Non-Reactive (Non-Reactive)
[2024-01-08 08:05] LABS: Hepatitis A Antibody IgM Non-Reactive (Non-Reactive); Hepatitis B Surface Antigen Negative (Negative)
== END 2024-01-07 13:45 | disposition home or self-care (01) | DRG 314 ==
LOC: ED 13:02 → ICU 13:02
PROVIDERS: ADMIT Internal Medicine; ATTEND Internal Medicine